=== PATIENT | male | born 1990 | race Caucasian/White ===

== ENCOUNTER 2018-02-09 11:15 | Emergency (ER) | payer MEDICAID, SELFPAY ==
--- NOTE | 2018-02-09 11:15 | DT_ITS ---
This patient was seen during an EMR downtime February 08, 2018 - February 15, 2018. This patient may have a combination of paper and electronic documentation or all paper documentation. All documentation is viewable within the e-chart portion of [employer] for each patient visit.
== END 2018-02-09 12:05 | disposition home or self-care (01) ==
PROVIDERS: Emergency Provider Emergency Medicine
DX: L02.11 Cutaneous abscess of neck (principal); F17.210 Nicotine dependence, cigarettes, uncomplicated
CPT/HCPCS: 99283

== ENCOUNTER 2018-02-23 09:53 | Emergency (ER) | payer MEDICAID, SELFPAY ==
[2018-02-23 09:56] VITALS: BP 139/97; PULSE 102; RESP 16; TEMP 37.1; O2SAT 97; BMI 25.0
--- NOTE | 2018-02-23 10:04 | ED.RN ---
PT REFUSES TO ANSWER QUESTIONS RELATED TO DRUG/ALCOHOL USE. PT REFUSES GOWN, UNCOOPERATIVE, STATES HE IS GOING TO FREAK OUT.
--- NOTE | 2018-02-23 10:18 | NURSING ---
pt refused gown, agreed to blood work and giving urine
[2018-02-23] MEDS: Haloperidol Lactate 5 MG/ML Vial IM (11:19)
[2018-02-23] MEDS: LORazepam 2 MG/ML Syringe IM (11:19)
[2018-02-23 11:47] LABS: Absolute Lymphocyte Count 2.84 X10^3/ul (0.83-4.51); Absolute Neutrophil Count 7.8 X10^3/uL (2.0-7.7); Basophil# 0.03 X10^3/uL; Basophil% 0.3 % (0-1); Eosinophil# 0.05 X10^3/uL; Eosinophils% 0.4 % (0-5); Hematocrit 44.1 % (40-54); Hemoglobin 14.5 g/dl (13.0-16.5); Lymphocyte # 2.84 X10^3/ul (4.0); Lymphocyte % 25.1 % (19-41); Mean Corp Hgb Conc 32.9 g/gl (32-36); Mean Corpuscular Hgb 29.1 pg (27.0-32.0); Mean Corpuscular Volume 88.4 fL (80-94); Mean Platelet Vol. 9.8 fl (6.2-12.0); Monocyte# 0.62 X10^3/uL; Monocyte% 5.5 % (0-10); Neutrophil # 7.76 X10^3/uL (2.7-7.7); Neutrophil % 68.6 % (47-70); Platelet Count 248 K/mm3 (150-450); RBC Distribution Width CV 13.4 % (11.6-14.6); RBC Distribution Width SD 43.5 fl (35.1-43.9); Red Blood Count 4.99 M/mm3 (4.6-6.2); White Blood Count 11.3 K/mm3 (4.4-11.0)
[2018-02-23 11:48] LABS: POSITIVE COUNT NO; POSITIVE DIFFERENTIAL NO; POSITIVE MORPHOLOGY NO
[2018-02-23 11:58] LABS: Anion Gap 4 (5-15); BUN 13 mg/dL (7-18); BUN/Creat Ratio 13.7 RATIO (10-20); Calcium,Total 9.1 mg/dL (8.5-10.1); Chloride 107 mmol/L (98-107); Creatinine, Serum 0.95 mg/dL (0.70-1.30); EST Glomerular Filtration Rate 100 mL/min (>60); Est Glom Filt Rate - Afr Amer 121 mL/min (>60); Glucose 87 mg/dL (74-106); Potassium 3.7 mmol/L (3.5-5.1); Sodium Level 140 mmol/L (136-145)
[2018-02-23 12:12] LABS: Amphetamine Urine VISTA POSITIVE (<1000 ng/mL); Barbiturate Urine VISTA NEGATIVE (< 200 ng/mL); Benzodiazepine Urine VISTA NEGATIVE (< 200 ng/mL); Cocaine Urine VISTA NEGATIVE (< 300 ng/mL); Ecstacy Urine VISTA POSITIVE (< 500 ng/mL); Methadone Urine VISTA NEGATIVE (< 300 ng/mL); PCP Urine VISTA NEGATIVE (< 25 ng/mL); THC Urine VISTA POSITIVE (< 50 ng/mL); Vista UDS pH Range 5
[2018-02-23 12:22] VITALS: BP 125/78; PULSE 78; RESP 16; O2SAT 98
--- NOTE | 2018-02-23 15:48 | NURSING ---
HEATHER, CRISIS, HERE FOR PATIENT
--- NOTE | 2018-02-23 16:03 | EKG12_ITS ---
Test Reason : MTC Blood Pressure : / mmHG Vent. Rate : 081 BPM Atrial Rate : 081 BPM P-R Int : 172 ms QRS Dur : 086 ms QT Int : 362 ms P-R-T Axes : 072 073 066 degrees QTc Int : 420 ms Normal sinus rhythm Normal ECG Confirmed by COLTEN BRANDON, GILL ([id number]), makeup editor MARY ANN ([id number] on 02/25/2018 9:05:12 AM Referred By: MEDINA Confirmed By:GILL ABEL MD
[2018-02-23 16:15] VITALS: PULSE 82; RESP 18; O2SAT 99
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
[2018-02-23 17:09] LABS: Mucous, Urine 0 SEEN /hpf (<or=2+); Red Blood Cells-Urine 0 SEEN /hpf (0-5); Squamous Epithelial Cells - UA 0 SEEN /hpf (0-5)
[2018-02-23 17:13] LABS: Color, Urine Yellow (Yellow); Glucose, Dipstick Normal (Normal); Ketone-Dipstick Negative (Negative); Leukocyte Esterase-Dipstick 25 /ul (Negative); Nitrite-Dipstick Negative (Negative); Occult Blood-Urine Negative /ul (Negative); Protein-Dipstick 15 mg/dl (Negative); Specific Gravity, Urine 1.025 (1.002-1.030); Urine Bilirubin Dipstick Negative (Negative); Urine Clarity Turbid (Clear); Urine Urobilinogen Normal (Normal)
[2018-02-23 17:20] LABS: Amorphous Sediment 3+; Bacteria 2+ /hpf (None Seen)
[2018-02-23 17:21] LABS: White Blood Cells 0-5 SEEN /hpf (0-5)
[2018-02-23 19:29] LABS: AST(SGOT) 16 U/L (15-37); Alanine Aminotransfer ALT/SGPT 20 U/L (16-61); Albumin, Serum 4.4 g/dL (3.2-5.0); Alkaline Phosphatase 66 U/L (45-117); Bilirubin, Direct 0.13 mg/dL (0.00-0.30); Globulin 3.5 g/dL (2.2-4.2); Protein, Total 7.9 g/dL (6.4-8.2)
[2018-02-23 19:31] VITALS: PULSE 104; RESP 18; O2SAT 99
[2018-02-23 22:51] VITALS: BP 126/66; PULSE 102; RESP 18; O2SAT 99
[2018-02-24] MEDS: Haloperidol Lactate 5 MG/ML Vial IM (00:10)
[2018-02-24] MEDS: LORazepam 2 MG/ML Syringe IM (00:10)
[2018-02-24 00:30] VITALS: PULSE 102; RESP 18
== END 2018-02-24 00:32 ==
PROVIDERS: Emergency Provider Emergency Medicine
DX: F29 Unspecified psychosis not due to a substance or known physiological condition (principal); F15.90 Other stimulant use, unspecified, uncomplicated; F12.90 Cannabis use, unspecified, uncomplicated; F19.90 Other psychoactive substance use, unspecified, uncomplicated; Z72.0 Tobacco use
CPT/HCPCS: 80048; 80076; 80307; 80320; 81001; 85025; 93005; 96372; 99285; G0480

== ENCOUNTER 2018-03-23 14:44 | Emergency (ER) | payer MEDICAID, SELFPAY ==
[2018-03-23 14:45] VITALS: BP 137/81; PULSE 104; RESP 16; TEMP 36.6; O2SAT 98; BMI 23.5
--- NOTE | 2018-03-23 15:29 | ED.DCSUM_ITS ---
- ER Visit Summary Date of Service: 03/23/18 Chief Complaint: Penile discharge and dysuria History of Present Illness: The patient is a 28 M history of bipolar disorder and schizophrenia. H his last sexual encounter was approximately 1 month ago. States he is having penile discharge is dysuria. Denies any hematuria. Denies any prior history of STD. Physical Examination: Well-appearing young male. Vital signs are stable afebrile. He is in no distress. H EENT exam is unremarkable. Neck nontender no lymphadenopathy. Lungs clear to auscultation bilaterally. Heart regular rate and rhythm no murmur. Abdomen soft nontender. Normal bowel sounds no peritoneal signs. Extremities moving all 4. Neurovascular intact. Neurologic exam normal. External exam nontender. No masses. No lymphadenopathy. No ulcerations. He does have a grayish penile discharge. Test Results: None Emergency Department Course and Treatment: Patient be treated with IM Rocephin and p.o. Zithromax. Treatment Plan: Instructed to avoid all sexual partners to be evaluated. Always use condoms. Disposition: Discharge Impression: Penile discharge secondary to STD Urethritis This note was generated with [employer] dictation software. It may contain incorrect words, spelling, and punctuation that were not noted in review of the chart prior to signing ED Disposition - Plan for ED Patient: Chief Complaint: Complaint Referrals: Care Physician,No Primary [Primary Care Provider] -
--- NOTE | 2018-03-23 15:29 | ED.DEP ---
ED Disposition - Plan for ED Patient: Disposition: Home or Assisted Living Chief Complaint: Complaint Instructions: ED Urethritis Infec Vs Inflam Male, ED STD Male Treated Referrals: Theodore Patel MD [STAFF PHYSICIAN] - Additional Instructions: Warn all your sexual partners to be evaluated. Follow-up if not improving in the next week.
[2018-03-23] MEDS: Azithromycin 250 MG Tablet 1000 MG PO (15:50)
[2018-03-23] MEDS: Ceftriaxone 500 MG Vial 250 MG IM (16:14)
[2018-03-23 16:30] VITALS: BP 128/85; RESP 14
== END 2018-03-23 16:31 | disposition home or self-care (01) ==
PROVIDERS: Emergency Provider Emergency Medicine
DX: R36.9 Urethral discharge, unspecified (principal); A64 Unspecified sexually transmitted disease; N34.2 Other urethritis; F31.9 Bipolar disorder, unspecified; F20.9 Schizophrenia, unspecified; Z79.899 Other long term (current) drug therapy; Z72.0 Tobacco use
CPT/HCPCS: 96372; 99283

== ENCOUNTER 2018-07-08 16:01 | Emergency (ER) | payer MEDICAID, SELFPAY ==
[2018-07-08 16:02] VITALS: BP 165/101; PULSE 95; RESP 18; TEMP 36.8; O2SAT 98; BMI 29.9
[2018-07-08 16:07] VITALS: O2SAT 100
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
[2018-07-08] MEDS: Morphine 4 MG/ML Syringe IV (17:07)
[2018-07-08] MEDS: Ondansetron 4 MG/2 ML Vial IV (17:07)
[2018-07-08] MEDS: 0.9% Normal Saline 1,000 ML 100 ML IV (17:07)
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
[2018-07-08 17:13] LABS: Absolute Lymphocyte Count 3.18 X10^3/ul (0.83-4.51); Absolute Neutrophil Count 9.1 X10^3/uL (2.0-7.7); Basophil# 0.05 X10^3/uL; Basophil% 0.4 % (0-1); Eosinophil# 0.16 X10^3/uL; Eosinophils% 1.2 % (0-5); Hematocrit 48.5 % (40-54); Hemoglobin 16.2 g/dl (13.0-16.5); Lymphocyte # 3.18 X10^3/ul (4.0); Lymphocyte % 23.5 % (19-41); Mean Corp Hgb Conc 33.4 g/gl (32-36); Mean Corpuscular Hgb 29.9 pg (27.0-32.0); Mean Corpuscular Volume 89.5 fL (80-94); Mean Platelet Vol. 10.3 fl (6.2-12.0); Monocyte# 0.98 X10^3/uL; Monocyte% 7.3 % (0-10); Neutrophil # 9.11 X10^3/uL (2.7-7.7); Neutrophil % 67.4 % (47-70); POSITIVE COUNT NO; POSITIVE DIFFERENTIAL NO; POSITIVE MORPHOLOGY NO; Platelet Count 258 K/mm3 (150-450); RBC Distribution Width SD 42.5 fl (35.1-43.9); Red Blood Count 5.42 M/mm3 (4.6-6.2); White Blood Count 13.5 K/mm3 (4.4-11.0)
[2018-07-08 17:16] VITALS: BP 130/80; O2SAT 100
[2018-07-08 17:22] LABS: International Normalized Ratio 0.9; Prothrombin Time (Protime)PT. 11.7 SECONDS (11.7-14.9)
[2018-07-08 17:23] LABS: Partial Thromboplast Time 27.8 Seconds (24.1-36.2)
[2018-07-08 17:28] LABS: Anion Gap 5 (5-15); BUN 11 mg/dL (7-18); BUN/Creat Ratio 9.5 RATIO (10-20); Calcium,Total 8.9 mg/dL (8.5-10.1); Chloride 102 mmol/L (98-107); Creatinine, Serum 1.16 mg/dL (0.70-1.30); EST Glomerular Filtration Rate 79 mL/min (>60); Est Glom Filt Rate - Afr Amer 96 mL/min (>60); Estimated Creatinine Clearance 93.96 ml/min; Glucose 74 mg/dL (74-106); Potassium 3.5 mmol/L (3.5-5.1); Sodium Level 140 mmol/L (136-145)
[2018-07-08 17:34] VITALS: BP 138/86; PULSE 110; RESP 14; O2SAT 97
== END 2018-07-08 17:53 | disposition short-term general hospital (02) ==
LOC: ED 16:52
PROVIDERS: Emergency Provider Emergency Medicine
DX: S06.321A Contusion and laceration of left cerebrum with loss of consciousness of 30 minutes or less, initial encounter (principal); R40.2410 Glasgow coma scale score 13-15, unspecified time; V43.52XA Car driver injured in collision with other type car in traffic accident, initial encounter; Y93.9 Activity, unspecified; Y92.9 Unspecified place or not applicable
CPT/HCPCS: 70450; 71045; 72125; 72170; 80048; 85025; 85610; 85730; 96361; 96374; 96375; 99284; J7030; A4216; J2405

== ENCOUNTER 2018-09-30 08:34 | Emergency (ER) | payer MEDICAID, SELFPAY ==
[2018-09-30] VITALS (8 sets, daily range): BP systolic 124–142; BP diastolic 72–93; PULSE 76–93; RESP 14–21; TEMP 36.9; O2SAT 95–100; BMI 23.3
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
--- NOTE | 2018-09-30 08:40 | ED.RN ---
[facility] TO HAVE [facility]ONE SEE THE PATIENT. THEY WILL BE SENDING SOMEONE OVER
[2018-09-30] MEDS: LORazepam 2 MG/ML Syringe IM (09:06)
--- NOTE | 2018-09-30 09:28 | ED.RN ---
HEATHER CALLED FROM [facility] AND SAID THEY WOULD BE SENDING SOMEONE OVER WITHIN THE HOUR
[2018-09-30 09:44] LABS: Absolute Lymphocyte Count 2.34 X10^3/ul (0.83-4.51); Absolute Neutrophil Count 5.7 X10^3/uL (2.0-7.7); Basophil# 0.07 X10^3/uL; Basophil% 0.8 % (0-1); Eosinophil# 0.13 X10^3/uL; Eosinophils% 1.5 % (0-5); Hemoglobin 14.5 g/dl (13.0-16.5); Lymphocyte # 2.34 X10^3/ul (4.0); Lymphocyte % 26.1 % (19-41); Mean Corpuscular Volume 91.1 fL (80-94); Monocyte# 0.69 X10^3/uL; Monocyte% 7.7 % (0-10); Neutrophil # 5.71 X10^3/uL (2.7-7.7); Neutrophil % 63.8 % (47-70); Platelet Count 250 K/mm3 (150-450); RBC Distribution Width CV 13.3 % (11.6-14.6); Red Blood Count 4.83 M/mm3 (4.6-6.2)
[2018-09-30 09:45] LABS: POSITIVE COUNT NO; POSITIVE DIFFERENTIAL NO; POSITIVE MORPHOLOGY NO
[2018-09-30 09:52] LABS: Anion Gap 7 (5-15); BUN 14 mg/dL (7-18); BUN/Creat Ratio 14.5 RATIO (10-20); Calcium,Total 8.7 mg/dL (8.5-10.1); Chloride 107 mmol/L (98-107); Creatinine, Serum 0.97 mg/dL (0.70-1.30); EST Glomerular Filtration Rate 97 mL/min (>60); Est Glom Filt Rate - Afr Amer 118 mL/min (>60); Estimated Creatinine Clearance 112.37 ml/min; Glucose 87 mg/dL (74-106); Potassium 4.3 mmol/L (3.5-5.1); Sodium Level 141 mmol/L (136-145)
[2018-09-30 10:09] LABS: Alcohol, Blood (Medical)-Serum < 3.0 mg/dL
[2018-09-30] MEDS: Ziprasidone IM 20 MG/ML VIAL IM (10:45)
[2018-09-30 11:53] LABS: Amphetamine Urine VISTA POSITIVE (<1000 ng/mL); Barbiturate Urine VISTA NEGATIVE (< 200 ng/mL); Benzodiazepine Urine VISTA NEGATIVE (< 200 ng/mL); Cocaine Urine VISTA NEGATIVE (< 300 ng/mL); Ecstacy Urine VISTA POSITIVE (< 500 ng/mL); Methadone Urine VISTA NEGATIVE (< 300 ng/mL); PCP Urine VISTA NEGATIVE (< 25 ng/mL); THC Urine VISTA POSITIVE (< 50 ng/mL); Vista UDS pH Range 6
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
== END 2018-09-30 17:58 ==
PROVIDERS: Emergency Provider Emergency Medicine
DX: F20.9 Schizophrenia, unspecified (principal); F31.9 Bipolar disorder, unspecified; R45.6 Violent behavior; Z78.1 Physical restraint status
CPT/HCPCS: 80048; 80307; 80320; 85025; 96372; 99285; G0480; J3486

== ENCOUNTER 2019-02-25 18:38 | Emergency (ER) | payer MEDICAID, SELFPAY ==
[2018-09-30 08:35] VITALS: BMI 23.3
[2019-02-25 18:38] VITALS: BP 119/68; PULSE 95; RESP 16; TEMP 36.4; O2SAT 100; BMI 24.7
[2019-02-25 19:16] VITALS: TEMP 36.4
[2019-02-25] MEDS: Clindamycin HCl 150 MG Capsule 300 MG PO (20:02)
--- NOTE | 2019-02-25 20:30 | ED.VISSUMM ---
- ER Visit Summary Date of Service: 02/25/19 Chief Complaint: Left jaw abscess History of Present Illness: The patient is a 29 M who presents for left sided jaw abscess that is been there for 3 months. Patient states it is also painful. He states today it started draining after he picked at it. He came in today because of the new drainage. He denies fever, sore throat, chest pain, shortness of breath, nausea or vomiting, or other complaints. He denies any history of IV drug use. Denies any prior abscesses. He is not diabetic. No other medical issues. Physical Examination: Patient is afebrile and hemodynamically stable. Well-nourished well-developed sitting in bed in no distress. Patient has swelling along the left mandible with a central scab and fluctuance. No submandibular fullness, no oropharyngeal erythema, exudates, neck is supple and full range of motion, no lymphadenopathy, no meningismus. No swelling noted of the salivary glands.] Test Results: [] Emergency Department Course and Treatment: Incision and drainage was performed. The area was cleansed thoroughly with chlorhexidine. 1 cc of lidocaine without epinephrine was locally instilled to anesthetize the top of the abscess region. Good anesthesia was achieved. A 1 cm stab incision was performed with initial expression of pus. Curved hemostats were used to break up any loculations. A moderate amount of very thick pus was expressed. The abscess cavity was irrigated. A wick was placed to keep the incision from closing. Patient was started on clindamycin antibiotic. He tolerated the procedure well. He was discharged home with return precautions. Treatment Plan: [] Disposition: [] Impression: Right jaw abscess status post incision and drainage This note was generated with [employer] dictation software. It may contain incorrect words, spelling, and punctuation that were not noted in review of the chart prior to signing ED Disposition - Plan for ED Patient: Disposition: Home or Assisted Living Instructions: ABSCESS, Incision and Drainage Prescriptions: Clindamycin [Cleocin] 300 mg PO 4X/DAY #80 cap Prescription Printed Referrals: Care Physician,No Primary [Primary Care Provider] - Doctor,Your [STAFF PHYSICIAN] - 3-5 Days if not improving Additional Instructions: Take the antibiotic as prescribed for the full 10 days even if you feel better before the anabiotic is complete. Do not skip any doses. If you have any worsening of your condition or any new concerning symptoms, please return immediately to the emergency department for another evaluation.
[2019-02-25 20:43] VITALS: BP 120/72; PULSE 74; RESP 16; O2SAT 99
== END 2019-02-25 20:41 | disposition home or self-care (01) ==
PROVIDERS: Emergency Provider Emergency Medicine
DX: M27.2 Inflammatory conditions of jaws (principal); Z72.0 Tobacco use
CPT/HCPCS: 10061; 99283

== ENCOUNTER 2019-04-09 20:54 | Emergency (ER) | payer SELFPAY ==
[2019-04-09 20:57] VITALS: BP 119/84; PULSE 86; PULSE 91; RESP 17; RESP 18; TEMP 37; O2SAT 97; BMI 22.3
--- NOTE | 2019-04-09 22:36 | ED.DCSUM_ITS ---
- ER Visit Summary Date of Service: 04/09/19 Chief Complaint: Meth abuse History of Present Illness: The patient is a 29 M who presents with meth abuse. The family had not seen him since last week. They are concerned that he may need IV fluids. However the patient states that he has been eating. He is able to tell me that he ate some dollar store food and some pancakes. Family also states he has been anxious. Patient has a blunted affect and did not provide much more history. However he does deny any recent illness such as fevers pain nausea vomiting. Physical Examination: Afebrile vitals are stable Moist mucous membranes Heart regular rate and rhythm Lungs clear Abdomen soft Alert Poverty of speech, blunted affect Test Results: Not indicated Emergency Department Course and Treatment: Basically family brought him here just requesting IV fluids. The patient also requested IV fluids. He was given a liter saline. He was given Vistaril. He was discharged. Treatment Plan: [] Disposition: Discharge Impression: Methamphetamine abuse This note was generated with [employer] dictation software. It may contain incorrect words, spelling, and punctuation that were not noted in review of the chart prior to signing ED Disposition - Plan for ED Patient: Referrals: Care Physician,No Primary [Primary Care Provider] -
--- NOTE | 2019-04-09 22:38 | ED.DEP ---
ED Disposition - Plan for ED Patient: Instructions: Understanding Methamphetamine Abuse and Addiction Referrals: Care Physician,No Primary [Primary Care Provider] -
[2019-04-09] MEDS: hydrOXYzine PAM 25 MG Capsule PO (22:42)
--- NOTE | 2019-04-09 23:17 | ED.RN ---
family member wants pt treated for mental illness, pt denies suicidal ideation, self harm, or desire for mental health treatment. made aware. no further orders, pt d/c.
== END 2019-04-09 23:33 | disposition home or self-care (01) ==
PROVIDERS: Emergency Provider Emergency Medicine
DX: F15.10 Other stimulant abuse, uncomplicated (principal)
CPT/HCPCS: 99283; J7030; A4216

== ENCOUNTER 2019-04-12 15:27 | Emergency (ER) | payer SELFPAY ==
[2019-04-12] VITALS (10 sets, daily range): BP systolic 101–126; BP diastolic 52–67; PULSE 58–118; RESP 14–20; TEMP 37.8; O2SAT 93–98; BMI 20.4
--- NOTE | 2019-04-12 15:42 | ED.VISSUMM ---
- ER Visit Summary Date of Service: 04/12/19 Chief Complaint: Agitation and psychosis History of Present Illness: The patient is a 29 M who presents with agitation and psychosis that was noticed today. Patient states that I need to kill my [place] thoughts. Patient does not answer any other questions. Patient is having some yazidi delusions. Physical Examination: Oral mucosa is pink and moist. Neck is supple. Trachea is midline. There is no JVD. Heart was regular rate and rhythm. Lungs are clear and equal bilaterally. Abdomen is soft. Bowel sounds are normal. There is no tenderness. Cranial nerves II through XII are intact. Strength is 5/5 blood in the upper and lower extremities. There are no apparent sensory deficits noted. Test Results: CBC showed a mild leukocytosis of 11.9. Basic metabolic profile was essentially within normal limits. Urine tox screen was positive for amphetamines and cannabinoids. Serum alcohol level was normal. Emergency Department Course and Treatment: Patient was given injections of Geodon and Ativan here. Patient was resting comfortably after this. Patient was able to be removed from restraints. Crisis was in to evaluate the patient. She felt that the patient will need to be transferred to psychiatric facility. She was told that the patient has been noncompliant with his medications recently. Disposition: Transfer to psychiatric facility Impression: Psychosis This note was generated with Pole Star dictation software. It may contain incorrect words, spelling, and punctuation that were not noted in review of the chart prior to signing ED Disposition - Plan for ED Patient: Disposition: Psychiatric Hospital or Unit Diagnosis: Psychosis Referrals: Care Physician,No Primary [Primary Care Provider] -
[2019-04-12] MEDS: Ziprasidone IM 20 MG/ML VIAL IM (15:51)
[2019-04-12] MEDS: LORazepam 2 MG/ML Syringe IM (15:51)
[2019-04-12 16:55] LABS: Absolute Neutrophil Count 9.5 X10^3/uL (2.0-7.7); Basophil# 0.05 X10^3/uL; Basophil% 0.4 % (0-1); Eosinophil# 0.04 X10^3/uL; Eosinophils% 0.3 % (0-5); Hematocrit 40.2 % (40-54); Hemoglobin 13.2 g/dL (13.0-16.5); Lymphocyte % 12.6 % (19-41); Mean Corp Hgb Conc 32.8 g/dL (32-36); Mean Corpuscular Volume 88.4 fL (80-94); Mean Platelet Vol. 10.7 fl (6.2-12.0); Monocyte# 0.72 X10^3/uL; NRBC Flagged by Analyzer 0 % (0-5); Neutrophil # 9.54 X10^3/uL (2.7-7.7); Neutrophil % 80.2 % (47-70); Platelet Count 226 K/mm3 (150-450); RBC Distribution Width SD 39.1 fl (35.1-43.9); Red Blood Count 4.55 M/mm3 (4.6-6.2); White Blood Count 11.9 K/mm3 (4.4-11.0)
--- NOTE | 2019-04-12 17:01 | ED.RN ---
PT ARRIVES TO ED VIA SQUAD WITH POLICED DEPT. AT BEDSIDE. PT IN HANDCUFFS FROM PD ON ARRIVAL. PT THRASHING AROUND ON CART, ATTEMPTING TO KICK POLICE AND STAFF. PT YELLING, I DON'T WANT TO BE HERE THEY ARE GOING TO KILL ME, HELP ME, GET THESE GUYS OUT OF HERE. THIS RN ATTEMPTS TO DE ESCALATE PT VERBALLY BY PROVIDING EMOTIONAL SUPPORT. PT ASSURED THAT STAFF IS HERE TO HELP PT NOT TO HARM PT. PT ADMITS TO HEARING VOICES. DR. DUNHAM AT BEDSIDE ON PT ARRIVAL, PT PLACED IN RESTRAINTS DUE TO BEING A HARM TO STAFF AND SELF. PT REPORTS SUICIDAL THOUGHTS IN SQUAD BUT DENIES A PLAN OR THOUGHTS OF HI. PT CONTINUING TO SHOUT AND CUSS AT STAFF AFTER RESTRAINTS APPLIED, STATING GET THAT LINDSEY OUT OF HERE HE IS GOING TO KILL ME. NO ONE PRESENT BUT THIS RN IN THE ROOM AT THE TIME.
[2019-04-12 17:06] LABS: Anion Gap 6 (5-15); BUN 16 mg/dL (7-18); BUN/Creat Ratio 15.2 RATIO (10-20); Calcium,Total 8.9 mg/dL (8.5-10.1); Chloride 110 mmol/L (98-107); Creatinine, Serum 1.05 mg/dL (0.70-1.30); EST Glomerular Filtration Rate 88 mL/min (>60); Est Glom Filt Rate - Afr Amer 107 mL/min (>60); Estimated Creatinine Clearance 99.23 ml/min; Glucose 89 mg/dL (74-106); Potassium 3.3 mmol/L (3.5-5.1); Sodium Level 142 mmol/L (136-145)
--- NOTE | 2019-04-12 18:25 | NURSING ---
EMELY, CRISIS, HERE
[2019-04-12 18:38] LABS: Amphetamine Urine VISTA POSITIVE (<1000 ng/mL); Barbiturate Urine VISTA NEGATIVE (< 200 ng/mL); Benzodiazepine Urine VISTA NEGATIVE (< 200 ng/mL); Cocaine Urine VISTA NEGATIVE (< 300 ng/mL); Ecstacy Urine VISTA NEGATIVE (< 500 ng/mL); Methadone Urine VISTA NEGATIVE (< 300 ng/mL); PCP Urine VISTA NEGATIVE (< 25 ng/mL); THC Urine VISTA POSITIVE (< 50 ng/mL); Vista UDS pH Range 6
--- NOTE | 2019-04-12 18:39 | ED.RN ---
pt sleeping, d/c from restraints at 1800. sitter at bedside. respires even and unlabored. will continue to monitor.
--- NOTE | 2019-04-12 22:40 | ED.RN ---
PT SISTER CALLED TO CHECK ON PT. PT SLEEPING. TOLD TO CALL BACK AT A LATER TIME.
[2019-04-13] VITALS (16 sets, daily range): BP systolic 101–138; BP diastolic 63–83; PULSE 16–88; RESP 15–18; TEMP 36.8–37.1; O2SAT 94–100
--- NOTE | 2019-04-13 01:04 | NURSING ---
EMELY FROM CRISIS CALLED STATING PATIENT WAS DENIED AT [facility] AND IS NOW REFERED TO [facility]
--- NOTE | 2019-04-13 02:35 | EKG12_ITS ---
Test Reason : Blood Pressure : / mmHG Vent. Rate : 065 BPM Atrial Rate : 065 BPM P-R Int : 176 ms QRS Dur : 082 ms QT Int : 442 ms P-R-T Axes : 068 070 074 degrees QTc Int : 459 ms Normal sinus rhythm with sinus arrhythmia Normal ECG Confirmed by FERNY KRUGER ([id number]), news video editor LAURA ONEAL ([id number]) on 04/18/2019 1:27:39 PM Referred By: Confirmed By:FERNY KRUGER
--- NOTE | 2019-04-13 02:48 | ED.RN ---
RECEIVED CALL FROM [facility] REQUESTING LIVER PROFILE, CPK, COMPLETE UA, AND EKG. RESULTS TO BE FAXED TO [facility] WHEN RESULTED.
[2019-04-13 03:21] LABS: AST(SGOT) 33 U/L (15-37); Alanine Aminotransfer ALT/SGPT 32 U/L (16-61); Albumin, Serum 3.7 g/dL (3.2-5.0); Alkaline Phosphatase 59 U/L (45-117); Bilirubin, Direct 0.21 mg/dL (0.00-0.30); Globulin 3.1 g/dL (2.2-4.2); Protein, Total 6.8 g/dL (6.4-8.2)
[2019-04-13 03:27] LABS: CPK Total, Creatine Kinase 540 U/L (39-308)
[2019-04-13 03:36] LABS: Color, Urine Yellow (Yellow); Glucose, Dipstick Normal (Normal); Ketone-Dipstick 5 mg/dl (Negative); Leukocyte Esterase-Dipstick Negative /ul (Negative); Nitrite-Dipstick Negative (Negative); Occult Blood-Urine 250 /ul (Negative); Protein-Dipstick 30 mg/dl (Negative); Specific Gravity, Urine 1.025 (1.002-1.030); Urine Bilirubin Dipstick Negative (Negative); Urine Clarity Sl. Cloudy (Clear); Urine Urobilinogen Normal (Normal)
[2019-04-13 03:42] LABS: Hyaline Cast 0-5 SEEN /lpf (0-5); Mucous, Urine 1+ /hpf (<or=2+); Red Blood Cells-Urine 25-50 SEEN /hpf (0-5)
[2019-04-13 03:43] LABS: Bacteria 1+ /hpf (None Seen); Coarse Granular Cast 0-5 SEEN /lpf (0-5 /lpf); Squamous Epithelial Cells - UA 0-5 SEEN /hpf (0-5); White Blood Cells 0-5 SEEN /hpf (0-5)
[2019-04-13] MEDS: 0.9% Normal Saline 1,000 ML 999 ML IV (05:24)
[2019-04-13 07:02] LABS: CPK Total, Creatine Kinase 280 U/L (39-308)
[2019-04-13] MEDS: Ziprasidone IM 20 MG/ML VIAL IM ×2 (08:03→21:23)
--- NOTE | 2019-04-13 08:04 | ED.RN ---
PT IS ESCALATING IN BEHAVIOR AND IRRITATION. PT TOOK HIS GOWN OFF AND REFUSED ASSISTANCE GETTING IT BACK ON. PT THEN REMOVED HIS IV, CATHETER INTACT. WHEN ATTEMPTNG TO PLACE A DRESSING HE WAS REFUSING AND TRYING TO GET DRESSED IN THE ROOM. UNABLE TO REDIRECT THE PT. PT WAS THEN ASSISTED INTO THE BED AND EXPLAINED WE WERE GOING TO GIVE HIM MEDICATION TO HELP RELAX. PT REFUSED AND BECAME COMBATIVE. PT WAS THEN MEDICATED AND GIVEN BLANKETS EXPLAINING THE NEED FOR HIM TO STAY IN THE BED AND TRY TO REMAIN CALM. PT IS CURRENTLY REMAINING IN THE BED. SITTER REMAINS AT BEDSIDE.
--- NOTE | 2019-04-13 15:54 | ED.RN ---
PT'S SISTER BROUGHT IN TSHIRT, JEANS AND UNDERWEAR BUT PT STATES THEY ARE NOT THE CORRECT SIZE SO SHE IS TAKING THEM BACK HOME TO BRING ANOTHER SET OF THE APPROPRIATE SIZE.
--- NOTE | 2019-04-13 20:59 | ED.RN ---
[facility] TRANSPORTING PT ETA [id number]
--- NOTE | 2019-04-13 21:30 | ED.RN ---
PT IV D/C. ANGIO INTACT.
== END 2019-04-13 21:42 ==
PROVIDERS: Emergency Medicine; Emergency Provider Emergency Medicine
DX: F29 Unspecified psychosis not due to a substance or known physiological condition (principal); Z78.1 Physical restraint status; Z91.14 Patient's other noncompliance with medication regimen
CPT/HCPCS: 36415; 80048; 80076; 80307; 80320; 81001; 82550; 85025; 93005; 96360; 96361; 96372; 99285; J7030; A4216; G0480; J3486

== ENCOUNTER 2019-11-10 05:18 | Emergency (ER) | payer MEDICAID, SELFPAY ==
[2019-04-12 15:29] VITALS: BMI 20.4
[2019-11-10] VITALS (13 sets, daily range): BP systolic 109–147; BP diastolic 66–102; PULSE 66–102; RESP 14–18; TEMP 36.8; O2SAT 98–100; BMI 21.7
--- NOTE | 2019-11-10 05:27 | ED.VIS.GEN ---
History of Present Illness Chief Complaint: Mental Health Informant: - - Police Narrative: Patient brought in by police for mental health evaluation. He apparently called for help, but then remained nonverbal with the police for approximately 45 minutes. They were able to get only a small amount of information out of him. Past Medical History - Allergies and Home Meds Allergies/Adverse Reactions: Allergies No Known Allergies Allergy (Verified 11/10/19 05:45) Primary Care Physician: Care Physician,No Primary [Primary Care Provider] - Past Medical History: - - Previously evaluated for psychosis Surgical History: ,  Smoking Status: Current every day smoker Review of Systems ROS: Unable to Obtain - Patient refusing to speak Physical Exam Vital Signs/Narrative: Vital Signs Temp Pulse Resp BP Pulse Ox 11/10/19 05:19 98.2 F 102 H 18 147/102 H 98 General: Well nourished, Well developed Head: Normocephalic ENT: Moist mucous membranes Neck: Supple Cardiovascular: Regular rate, Regular rhythm Respiratory: No distress, CTA bilaterally Abdomen: Soft, Nontender Neurological: Alert, - - Patient is observed ambulating into the emergency room without difficulty. He is moving all 4 extremities. He Steri-Stat ahead and refuses to answer any questions. Diagnostic/Tx/Re-eval Laboratory Results 11/10/19 11/10/19 11/10/19 05:35 05:50 05:50 WBC 11.4 H RBC 4.72 Hgb 13.8 Hct 41.0 MCV 86.9 MCH 29.2 MCHC 33.7 RDW Std Deviation 39.3 RDW Coeff of Vu 12.4 Plt Count 258 MPV 10.1 Immature Gran % (Auto) 0.300 Neut % (Auto) 66.5 Lymph % (Auto) 21.5 [place] % (Auto) 10.5 H Eos % (Auto) 0.7 Baso % (Auto) 0.5 Absolute Neuts (auto) 7.6 Absolute Lymphs (auto) 2.45 Nucleated RBC % 0 Sodium 137 Potassium 4.0 Chloride 105 Carbon Dioxide 23.0 Anion Gap 9 BUN 22 H Creatinine 1.18 Estim Creat Clear Calc 79.28 Est GFR (MDRD) Af Amer 93 Est GFR (MDRD) Non-Af 77 BUN/Creatinine Ratio 18.6 Glucose 95 Calcium 9.3 Urine Opiates Screen Urine Methadone Screen Ur Barbiturates Screen Ur Phencyclidine Scrn Ur Amphetamines Screen U Methamphetamin-MDMA U Benzodiazepines Scrn Urine Cocaine Screen U Cannabinoids Screen Ur Drug Screen Comment Ethyl Alcohol < 3.0 11/10/19 06:05 WBC RBC Hgb Hct MCV MCH MCHC RDW Std Deviation RDW Coeff of Vu Plt Count MPV Immature Gran % (Auto) Neut % (Auto) Lymph % (Auto) [place] % (Auto) Eos % (Auto) Baso % (Auto) Absolute Neuts (auto) Absolute Lymphs (auto) Nucleated RBC % Sodium Potassium Chloride Carbon Dioxide Anion Gap BUN Creatinine Estim Creat Clear Calc Est GFR (MDRD) Af Amer Est GFR (MDRD) Non-Af BUN/Creatinine Ratio Glucose Calcium Urine Opiates Screen NEGATIVE Urine Methadone Screen NEGATIVE Ur Barbiturates Screen NEGATIVE Ur Phencyclidine Scrn NEGATIVE Ur Amphetamines Screen POSITIVE H U Methamphetamin-MDMA NEGATIVE U Benzodiazepines Scrn NEGATIVE Urine Cocaine Screen NEGATIVE U Cannabinoids Screen NEGATIVE Ur Drug Screen Comment Ethyl Alcohol - Medical Decision Making Patient was seen by Ilan from crisis. Patient will require placement. He is more talkative. At this time. I was advised by nursing staff a short time later the patient is becoming more agitated and actually requested something for sedation. He is given a dose of Geodon. My understanding is information has been sent to [facility] for transfer. ED Disposition - Plan for ED Patient: Disposition: Psychiatric Hospital or Unit Diagnosis: Psychosis Referrals: Care Physician,No Primary [Primary Care Provider] -
[2019-11-10 06:09] LABS: Absolute Lymphocyte Count 2.45 X10^3/uL (0.83-4.51); Absolute Neutrophil Count 7.6 X10^3/uL (2.0-7.7); Basophil# 0.06 X10^3/uL; Basophil% 0.5 % (0-1); Eosinophil# 0.08 X10^3/uL; Eosinophils% 0.7 % (0-5); Hemoglobin 13.8 g/dL (13.0-16.5); Lymphocyte # 2.45 X10^3/ul (4.0); Lymphocyte % 21.5 % (19-41); Mean Corp Hgb Conc 33.7 g/dL (32-36); Mean Corpuscular Hgb 29.2 pg (27.0-32.0); Mean Corpuscular Volume 86.9 fL (80-94); Mean Platelet Vol. 10.1 fl (6.2-12.0); Monocyte% 10.5 % (0-10); NRBC Flagged by Analyzer 0 % (0-5); Neutrophil % 66.5 % (47-70); Platelet Count 258 K/mm3 (150-450); RBC Distribution Width CV 12.4 % (11.6-14.6); RBC Distribution Width SD 39.3 fl (35.1-43.9); Red Blood Count 4.72 M/mm3 (4.6-6.2); White Blood Count 11.4 K/mm3 (4.4-11.0)
[2019-11-10 06:11] LABS: Anion Gap 9 (5-15); BUN 22 mg/dL (7-18); BUN/Creat Ratio 18.6 RATIO (10-20); Calcium,Total 9.3 mg/dL (8.5-10.1); Chloride 105 mmol/L (98-107); Creatinine, Serum 1.18 mg/dL (0.70-1.30); EST Glomerular Filtration Rate 77 mL/min (>60); Est Glom Filt Rate - Afr Amer 93 mL/min (>60); Estimated Creatinine Clearance 79.28 ml/min; Glucose 95 mg/dL (74-106); Sodium Level 137 mmol/L (136-145)
[2019-11-10 06:26] LABS: Alcohol, Blood (Medical)-Serum < 3.0 mg/dL
--- NOTE | 2019-11-10 06:38 | NURSING ---
CALLED CRISIS ANSWERING MACHINE. LEFT MESSAGE TAI RODRIGUEZ, CALLED BACK
[2019-11-10 06:41] LABS: Amphetamine Urine VISTA POSITIVE (<1000 ng/mL); Barbiturate Urine VISTA NEGATIVE (< 200 ng/mL); Benzodiazepine Urine VISTA NEGATIVE (< 200 ng/mL); Cocaine Urine VISTA NEGATIVE (< 300 ng/mL); Ecstacy Urine VISTA NEGATIVE (< 500 ng/mL); Methadone Urine VISTA NEGATIVE (< 300 ng/mL); PCP Urine VISTA NEGATIVE (< 25 ng/mL); THC Urine VISTA NEGATIVE (< 50 ng/mL); Vista UDS pH Range 6
--- NOTE | 2019-11-10 06:57 | NURSING ---
MICHAEL, CRISIS, HERE
[2019-11-10] MEDS: Ziprasidone IM 20 MG/ML VIAL IM (08:22)
--- NOTE | 2019-11-10 09:20 | EKG12_ITS ---
Test Reason : MENTAL CLEARANCE Blood Pressure : / mmHG Vent. Rate : 075 BPM Atrial Rate : 075 BPM P-R Int : 160 ms QRS Dur : 086 ms QT Int : 382 ms P-R-T Axes : 068 067 056 degrees QTc Int : 426 ms Normal sinus rhythm Normal ECG Confirmed by COLIN BRANDON, SEBASTIEN ([id number]), editor managing newspaper LAURA ONEAL ([id number]) on 11/11/2019 8:02:28 AM Referred By: MISTY Confirmed By:PAUL SHAW MD
[2019-11-10 09:54] LABS: AST(SGOT) 47 U/L (15-37); Alanine Aminotransfer ALT/SGPT 25 U/L (16-61); Albumin, Serum 4.1 g/dL (3.2-5.0); Alkaline Phosphatase 82 U/L (45-117); Bilirubin, Direct 0.12 mg/dL (0.00-0.30); Globulin 4.3 g/dL (2.2-4.2); Protein, Total 8.4 g/dL (6.4-8.2)
--- NOTE | 2019-11-10 10:04 | NURSING ---
FAXED EKG, LIVER PANEL, AND CURRENT VITALS TO [facility]
--- NOTE | 2019-11-10 11:52 | NURSING ---
CALLED CRISIS AND HAD TO LEAVE A MESSAGE. SOMEONE WILL CALL US BACK. JUST WANTING AN [facility]
--- NOTE | 2019-11-10 12:17 | NURSING ---
PATIENT ACCEPTED AT [facility] IS ARRANGING TRANSPORT AND WILL CALL WITH INFO. PER KENYATTA
--- NOTE | 2019-11-10 12:58 | NURSING ---
REPOT GIVEN TO SAGRARIO AT [facility]
== END 2019-11-10 16:00 ==
PROVIDERS: Emergency Provider Emergency Medicine
DX: F29 Unspecified psychosis not due to a substance or known physiological condition (principal)
CPT/HCPCS: 80048; 80076; 80307; 80320; 85025; 93005; 96372; 99285; G0480; J3486

== ENCOUNTER 2020-01-07 23:35 | Emergency (ER) | payer SELFPAY ==
[2019-11-10 05:19] VITALS: BMI 21.7
[2020-01-07 23:35] VITALS: BP 140/97; PULSE 113; RESP 14; TEMP 36.1; O2SAT 100; BMI 25.0
[2020-01-08] VITALS (11 sets, daily range): BP systolic 107–109; BP diastolic 62–67; PULSE 68–93; RESP 14–18; TEMP 36.5; O2SAT 96–98
[2020-01-08] MEDS: Ziprasidone IM 20 MG/ML VIAL IM (00:20)
[2020-01-08 00:53] LABS: Absolute Lymphocyte Count 3.17 X10^3/uL (0.83-4.51); Absolute Neutrophil Count 7.5 X10^3/uL (2.0-7.7); Basophil# 0.06 X10^3/uL; Basophil% 0.5 % (0-1); Eosinophil# 0.08 X10^3/uL; Eosinophils% 0.7 % (0-5); Hematocrit 44.1 % (40-54); Lymphocyte # 3.17 X10^3/ul (4.0); Lymphocyte % 26.9 % (19-41); Mean Corp Hgb Conc 31.7 g/dL (32-36); Mean Corpuscular Hgb 28.5 pg (27.0-32.0); Mean Corpuscular Volume 89.8 fL (80-94); Monocyte# 0.91 X10^3/uL; Monocyte% 7.7 % (0-10); NRBC Flagged by Analyzer 0 % (0-5); Neutrophil # 7.47 X10^3/uL (2.7-7.7); Neutrophil % 63.4 % (47-70); Platelet Count 294 K/mm3 (150-450); RBC Distribution Width CV 12.8 % (11.6-14.6); RBC Distribution Width SD 42.2 fl (35.1-43.9); Red Blood Count 4.91 M/mm3 (4.6-6.2); White Blood Count 11.8 K/mm3 (4.4-11.0)
[2020-01-08 01:04] LABS: Anion Gap 4 (5-15); BUN 20 mg/dL (7-18); BUN/Creat Ratio 21.1 RATIO (10-20); Calcium,Total 9.3 mg/dL (8.5-10.1); Chloride 109 mmol/L (98-107); Creatinine, Serum 0.95 mg/dL (0.70-1.30); EST Glomerular Filtration Rate 99 mL/min (>60); Est Glom Filt Rate - Afr Amer 119 mL/min (>60); Glucose 94 mg/dL (74-106); Potassium 3.6 mmol/L (3.5-5.1); Sodium Level 141 mmol/L (136-145)
[2020-01-08 01:06] LABS: Amphetamine Urine VISTA POSITIVE (<1000 ng/mL); Barbiturate Urine VISTA NEGATIVE (< 200 ng/mL); Benzodiazepine Urine VISTA NEGATIVE (< 200 ng/mL); Cocaine Urine VISTA NEGATIVE (< 300 ng/mL); Ecstacy Urine VISTA POSITIVE (< 500 ng/mL); Methadone Urine VISTA NEGATIVE (< 300 ng/mL); PCP Urine VISTA NEGATIVE (< 25 ng/mL); THC Urine VISTA NEGATIVE (< 50 ng/mL); Vista UDS pH Range 5
[2020-01-08 01:47] LABS: Alcohol, Blood (Medical)-Serum < 3.0 mg/dL
--- NOTE | 2020-01-08 03:34 | NURSING ---
CALLED CRISIS AT [phone]
--- NOTE | 2020-01-08 03:43 | ED.DCSUM_ITS ---
- ER Visit Summary Date of Service: 01/08/20 Chief Complaint: Abnormal behavior History of Present Illness: The patient is a 29 M who presents with abnormal behavior that was noticed today. Patient refuses to answer any questions. Patient was brought in by police. Police reports the patient has been acting abnormally. Police report that he threw all of his medications away. Fully states that he is not caring for himself properly. Patient states he does not want to go to [place]. Patient denies any fevers or chills. Patient denies any nausea or vomiting. Patient denies any chest pain or shortness of breath. Patient denies any other symptoms. Physical Examination: Vital signs are stable. Patient is afebrile. Patient is in no acute distress. Oral mucosa is pink and moist. Neck is supple. Trachea is midline. There is no JVD noted. Heart was regular rate and rhythm. Lungs are clear and equal bilaterally. Abdomen is soft. Bowel sounds are normal. There is no tenderness. There is no rebound or guarding noted. Skin is warm dry. Cranial nerves II through XII are intact. There are no focal motor or sensory deficits noted. Extremities are intact. There is no calf tenderness or edema. Patient has poverty of speech. Patient denies any suicidal homicidal ideations. Patient refused to answer whether he was having visual or auditory hallucinations. Test Results: CBC shows a slight leukocytosis of 11.8. Metabolic profile was within normal limits. Urine tox screen was positive for amphetamines and MDMA. Serum alcohol level was normal. Emergency Department Course and Treatment: Patient was given a dose of Geodon here for agitation. Patient was monitored here in the emergency department. Case was discussed with crisis counselor. They will consult with the patient over the phone and he is more awake and alert. Disposition: Care of the patient was turned over to the oncoming physician. Impression: Abnormal behavior This note was generated with Sunpreme dictation software. It may contain incorrect words, spelling, and punctuation that were not noted in review of the chart prior to signing ED Disposition - Plan for ED Patient: Referrals: Care Physician,No Primary [Primary Care Provider] -
--- NOTE | 2020-01-08 07:24 | ED.RN ---
AWAITING PATIENT TO BE EVALUATED BY CRISIS. PT SLEEPING AT THIS TIME. BREAKFAST TRAY ORDERED.
--- NOTE | 2020-01-08 08:22 | NURSING ---
CALLED CRISIS. EMELY IS ON.
--- NOTE | 2020-01-08 08:27 | NURSING ---
TAI HAN, CALLED BACK. SHE WILL LET HEATHER KNOW ABOUT PATIENT.
--- NOTE | 2020-01-08 08:51 | NURSING ---
HEATHER, CRISIS, CALLED BACK SHE HAS TO TAKE CARE OF SOMETHING, THEN SHE WILL WORK ON PATIENT
--- NOTE | 2020-01-08 14:33 | ED.DEP ---
ED Disposition - Plan for ED Patient: Diagnosis: Psychiatric disorder Instructions: ED Schizophrenia General, ED Schizo Affective Disorder, ED Personality Disorder, ED AMPHETAMINE ABUSE Referrals: Care Physician,No Primary [Primary Care Provider] - Additional Instructions: Take your medications follow-up with your mental health counselor transition social worker tomorrow
--- NOTE | 2020-01-08 15:35 | ED.RN ---
REVIEWED D/C INSTRUCTIONS, FOLLOW UP CARE, AND S/S THAT WOULD WARRANT A RETURN TO THE ED WITH PT. PT DID NOT WANT DISCHARGE PAPERS SO PUT THEM IN THE TRASH. PT AMBULATED OUT OF ED AND STATES HE WILL FOLLOW UP WITH COUNSELING CENTER. GAIT STEADY, RESP EVEN AND UNLABORED, NO DISTRESS NOTED.
== END 2020-01-08 15:36 | disposition home or self-care (01) ==
LOC: ED 01-08 01:02
PROVIDERS: Emergency Provider Emergency Medicine
DX: F29 Unspecified psychosis not due to a substance or known physiological condition (principal); Z72.0 Tobacco use
CPT/HCPCS: 36415; 80048; 80307; 80320; 85025; 96372; 99283; G0480; J3486

== ENCOUNTER 2020-01-28 18:33 | Emergency (ER) | payer SELFPAY ==
[2020-01-28 18:35] VITALS: BP 143/96; PULSE 125; RESP 16; TEMP 37.3; O2SAT 95; BMI 23.6
--- NOTE | 2020-01-28 20:10 | ED.VIS.GEN ---
History of Present Illness Chief Complaint: Substance Abuse Informant: Patient Narrative: Patient acting bizarre, was seen wandering on the [place] and admitted using methamphetamine at one point. He denies that to us, but also thinks that we andrzej his blood earlier and stole it from him, which did not happen. He was seen here couple weeks ago with similar story from what nursing staff tells me. He is delusional and talking about the nurse tonight, making up stories. He is nonsensical. He does not have any signs of trauma. History is extremely limited from him, for the most part he will not talk when asked questions. He does point out a wound on his left ankle. He cannot tell us any details about it but it seems to hurt when we press on it. He is standing while he shows us this and gives us a couple of responses. Past Medical History - Allergies and Home Meds Allergies/Adverse Reactions: Allergies No Known Allergies Allergy (Verified 01/28/20 18:40) Primary Care Physician: Care Physician,No Primary [Primary Care Provider] - Past Medical History: - - Unknown Surgical History: - - Unknown Smoking Status: Current every day smoker Drugs: - - Possibly methamphetamine, otherwise unknown Review of Systems ROS: Unable to Obtain Skin: Reports: Wounds Physical Exam Vital Signs/Narrative: Vital Signs Temp Pulse Resp BP Pulse Ox 01/28/20 18:35 99.1 F 125 H 16 143/96 H 95 Inital Vital Signs reviewed: Yes General: Well nourished, Well developed, No Acute Distress Head: Normocephalic, Atraumatic Eyes: Perrl - 3 mm, EOMI ENT: Moist mucous membranes, No rhinorrhea, - - Posterior oropharynx clear Neck: Supple, Nontender, No lymphadenopathy Cardiovascular: Regular rate, Regular rhythm, No murmurs, Tachycardia Respiratory: No distress, CTA bilaterally, Chest nontender Abdomen: Soft, Nontender, Nondistended, Normal bowel sounds Back: Nontender, Normal Inspection Extremities: No edema, Tenderness - Left ankle wound Skin: Normal color, No Trauma, Rash - 1 cm ulcerated wound left medial ankle, proximal to the medial malleolus, near the top of his boot with surrounding tender cellulitis. No purulent discharge expressible from the wound which is open. Neurological: Alert, Cranial nerves II-XII grossly intact, Normal Strength, Normal Sensation, Normal Gait, Confused Psychological: - - Paucity of speech. Stares off into space a lot in response to questions. Occasionally seems delusional. Then suddenly will smile and look at me and the nurse and asked are you 2 together, like actually together? Diagnostic/Tx/Re-eval - Medical Decision Making Nurse and I tried to very gently convince the patient to undergo testing so that we could help him. Initially he was cooperative and calm and he sat down for us. However when nursing went and he was adamant that they were not going to draw his blood. Nurse told me of this, and we had instructed him to give us a urine sample and we tried to help him with this, however when I went back to the room, he eloped. ED Disposition - Plan for ED Patient: Disposition: Against Medical Advice Diagnosis: Methamphetamine abuse Referrals: Care Physician,No Primary [Primary Care Provider] -
[2020-01-28 20:39] LABS: Amphetamine Urine VISTA POSITIVE (<1000 ng/mL); Barbiturate Urine VISTA NEGATIVE (< 200 ng/mL); Benzodiazepine Urine VISTA NEGATIVE (< 200 ng/mL); Cocaine Urine VISTA NEGATIVE (< 300 ng/mL); Ecstacy Urine VISTA POSITIVE (< 500 ng/mL); Methadone Urine VISTA NEGATIVE (< 300 ng/mL); PCP Urine VISTA NEGATIVE (< 25 ng/mL); THC Urine VISTA NEGATIVE (< 50 ng/mL); Vista UDS pH Range 6
--- NOTE | 2020-01-28 20:41 | ED.RN ---
pt went to [facility]. refused catscan. on way back pt refusing to stay. 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 aware of patient not wanting to ambulate to room.
[2020-01-28 20:44] LABS: Bacteria 0 SEEN /hpf (None Seen); Mucous, Urine 0 SEEN /hpf (<or=2+); White Blood Cells 0 SEEN /hpf (0-5)
[2020-01-28 20:46] LABS: Color, Urine Yellow (Yellow); Glucose, Dipstick Normal (Normal); Ketone-Dipstick 50 mg/dl (Negative); Leukocyte Esterase-Dipstick Negative /ul (Negative); Nitrite-Dipstick Negative (Negative); Occult Blood-Urine 10 /ul (Negative); Protein-Dipstick 30 mg/dl (Negative); Specific Gravity, Urine 1.025 (1.002-1.030); Urine Bilirubin Dipstick Negative (Negative); Urine Clarity Cloudy (Clear); Urine Urobilinogen 1 mg/dl (Normal)
[2020-01-28 20:57] LABS: Squamous Epithelial Cells - UA 0-5 SEEN /hpf (0-5)
[2020-01-28 20:59] LABS: Red Blood Cells-Urine 0-5 SEEN /hpf (0-5)
[2020-01-28 21:00] LABS: Amorphous Sediment 1+ URATE
== END 2020-01-28 20:45 | disposition left against medical advice (07) ==
PROVIDERS: Emergency Provider Emergency Medicine
DX: F15.10 Other stimulant abuse, uncomplicated (principal); L97.329 Non-pressure chronic ulcer of left ankle with unspecified severity; F17.200 Nicotine dependence, unspecified, uncomplicated
CPT/HCPCS: 80307; 81001; 99285

== ENCOUNTER 2020-02-11 16:52 | Emergency (ER) | payer SELFPAY ==
[2020-02-11 16:53] VITALS: BP 132/83; PULSE 83; RESP 16; TEMP 36.3; O2SAT 99; BMI 23.6
--- NOTE | 2020-02-11 17:01 | ED.DCSUM_ITS ---
History of Present Illness Chief Complaint: Wound Informant: Patient Narrative: Patient presents for evaluation of a wound on his left leg. He states that he got bit by a spider a while ago. He states now it is tender and red. Patient is well-known to the emergency department. Is a long history of methamphetamine abuse. He often is homeless. He denies any fevers. He states he has wounds that will not heal. Past Medical History - Allergies and Home Meds Allergies/Adverse Reactions: Allergies No Known Allergies Allergy (Verified 02/11/20 16:53) Primary Care Physician: Care Physician,No Primary [Primary Care Provider] - Surgical History: - - Unknown Smoking Status: Current every day smoker Review of Systems General: Denies: Chills, Fever, Sweats Eyes: Denies: Visual changes - bilaterally, Diplopia ENT: Denies: Rhinorrhea, Sore throat Cardiovascular: Denies: Chest pain, Palpitations Respiratory: Denies: Dyspnea, Cough, Dyspnea on exertion Gastrointestinal: Denies: Abdominal pain, Nausea, Vomiting, Diarrhea, Melena, Hematochezia Genitourinary: Denies: Dysuria, Hematuria, Frequency Musculoskeletal: Denies: Back pain, Extremity Pain Skin: Reports: Rash, Wounds Neurological: Denies: Headache, Weakness, Numbness Physical Exam Vital Signs/Narrative: Vital Signs Temp Pulse Resp BP Pulse Ox 02/11/20 16:53 97.3 F L 83 16 132/83 H 99 Inital Vital Signs reviewed: Yes General: Well nourished, Well developed, Unkempt, No Acute Distress Head: Normocephalic, Atraumatic Eyes: Perrl, EOMI ENT: Moist mucous membranes, No rhinorrhea Neck: Supple, Nontender Cardiovascular: Regular rate, Regular rhythm, No murmurs Respiratory: No distress, CTA bilaterally, Chest nontender Abdomen: Soft, Nontender, Nondistended, Normal bowel sounds Back: Nontender, Normal Inspection Extremities: Nontender, No edema Skin: - - Patient has multiple wounds on his body that are excoriated consistent with methamphetamine abuse. On the left leg posterior medial upper calf there is an excoriated lesion. Surrounding this is erythema and warmth. The area of erythema is approximately 4 cm. There is no fluctuance to suggest drainable abscess. Bedside ultrasound does not demonstrate drainable abscess. Neurological: Alert, Oriented x3, Cranial nerves II-XII grossly intact, Normal Strength, Normal Sensation Psychological: Normal affect, Normal Mood Diagnostic/Tx/Re-eval - Medical Decision Making Patient was placed on Bactrim and Keflex. He is to follow-up with primary care I again stressed to him that continue to use methamphetamines is not conducive to skin healing. ED Disposition - Plan for ED Patient: Disposition: Home or Assisted Living Diagnosis: Left leg cellulitis Instructions: ED Cellulitis Prescriptions: Smz/Tmp Ds [Bactrim Ds] 1 tab PO BID #20 tab Transmission Status: Pending to [facility] Cephalexin [Keflex] 500 mg PO Q6 #40 cap Transmission Status: Pending to [facility] Referrals: Bora Benavides III, MD [STAFF PHYSICIAN] - 2 Days for wound check
== END 2020-02-11 17:21 | disposition home or self-care (01) ==
LOC: ED 17:17
PROVIDERS: Emergency Provider Emergency Medicine
DX: L03.116 Cellulitis of left lower limb (principal); F15.10 Other stimulant abuse, uncomplicated; F17.200 Nicotine dependence, unspecified, uncomplicated
CPT/HCPCS: 99282

== ENCOUNTER 2020-03-31 05:20 | Emergency (ER) | payer SELFPAY ==
[2020-03-31 05:23] VITALS: BP 143/95; PULSE 104; RESP 14; TEMP 37.2; O2SAT 98; BMI 26.4
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
[2020-03-31 05:51] LABS: Absolute Lymphocyte Count 2.97 X10^3/uL (0.83-4.51); Basophil# 0.06 X10^3/uL; Basophil% 0.6 % (0-1); Eosinophil# 0.05 X10^3/uL; Eosinophils% 0.5 % (0-5); Hemoglobin 13.4 g/dL (13.0-16.5); Lymphocyte # 2.97 X10^3/ul (4.0); Lymphocyte % 29.5 % (19-41); Mean Corp Hgb Conc 32.7 g/dL (32-36); Mean Corpuscular Hgb 28.8 pg (27.0-32.0); Mean Platelet Vol. 10.5 fl (6.2-12.0); Monocyte# 0.97 X10^3/uL; Monocyte% 9.6 % (0-10); NRBC Flagged by Analyzer 0 % (0-5); Neutrophil % 59.6 % (47-70); Platelet Count 204 K/mm3 (150-450); RBC Distribution Width SD 44.5 fl (35.1-43.9); Red Blood Count 4.66 M/mm3 (4.6-6.2); White Blood Count 10.1 K/mm3 (4.4-11.0)
[2020-03-31 06:05] LABS: Alcohol, Blood (Medical)-Serum < 3.0 mg/dL
[2020-03-31 06:06] LABS: Anion Gap 6 (5-15); BUN 16 mg/dL (7-18); BUN/Creat Ratio 16.1 RATIO (10-20); Calcium,Total 9.1 mg/dL (8.5-10.1); Chloride 110 mmol/L (98-107); Creatinine, Serum 0.99 mg/dL (0.70-1.30); EST Glomerular Filtration Rate 94 mL/min (>60); Est Glom Filt Rate - Afr Amer 113 mL/min (>60); Estimated Creatinine Clearance 94.04 ml/min; Glucose 80 mg/dL (74-106); Potassium 3.3 mmol/L (3.5-5.1); Sodium Level 140 mmol/L (136-145)
[2020-03-31 07:50] LABS: Probe Check PASS; Specimen Processing Control PASS
--- NOTE | 2020-03-31 08:56 | NURSING ---
CHART FAXED TO CRISIS
[2020-03-31 09:42] LABS: Amphetamine Urine VISTA POSITIVE (<1000 ng/mL); Barbiturate Urine VISTA NEGATIVE (< 200 ng/mL); Benzodiazepine Urine VISTA NEGATIVE (< 200 ng/mL); Cocaine Urine VISTA NEGATIVE (< 300 ng/mL); Ecstacy Urine VISTA POSITIVE (< 500 ng/mL); Methadone Urine VISTA NEGATIVE (< 300 ng/mL); PCP Urine VISTA NEGATIVE (< 25 ng/mL); THC Urine VISTA NEGATIVE (< 50 ng/mL); Vista UDS pH Range 5
--- NOTE | 2020-03-31 11:42 | CM.ED ---
SOCIAL WORK Spoke with Jadyn from Crisis. Patient is Self Pay. Jadyn to be calling in to complete assessment with patient this afternoon. Plan: Pending Crisis consult. Earl Marino, GRAVITY PROSPECTING SUPERVISOR, LAND SURVEYOR ASSISTANT
[2020-03-31 12:11] VITALS: BP 115/72; PULSE 87; RESP 16; O2SAT 96
[2020-03-31 13:00] VITALS: RESP 16
--- NOTE | 2020-03-31 13:29 | NURSING ---
LINDA, CRISIS, TALKING TO PATIENT
--- NOTE | 2020-03-31 13:58 | ED.RN ---
crisis on the phone with patient, patient very agitated and not cooperative or answering questions. aware.
--- NOTE | 2020-03-31 14:05 | ED.DEP ---
ED Disposition - Plan for ED Patient: Diagnosis: Depression, Methamphetamine abuse Instructions: Understanding Methamphetamine Abuse and Addiction Referrals: Counseling,Center [GROUP OF PHYSICIANS] - As soon as possible [facility] [STAFF PHYSICIAN] - As soon as possible
== END 2020-03-31 14:12 | disposition home or self-care (01) ==
PROVIDERS: Emergency Provider Emergency Medicine
DX: F31.9 Bipolar disorder, unspecified (principal); R45.851 Suicidal ideations; F15.10 Other stimulant abuse, uncomplicated; F17.200 Nicotine dependence, unspecified, uncomplicated
CPT/HCPCS: 80048; 80307; 80320; 85025; 87635; 94799; 99282; G0480; U0003

== ENCOUNTER 2020-05-05 03:54 | Emergency (ER) | payer SELFPAY ==
[2020-05-05 03:55] VITALS: BP 138/97; PULSE 66; RESP 18; TEMP 36.4; O2SAT 100; BMI 24.3
--- NOTE | 2020-05-05 05:22 | ED.VIS.GEN ---
History of Present Illness Chief Complaint: Upper Extremity Injury Informant: Patient Narrative: Patient stated its cold and rainy outside and came in to warm up. He denies any specific complaints otherwise. No injury. He is homeless Past Medical History - Allergies and Home Meds Allergies/Adverse Reactions: Allergies No Known Allergies Allergy (Verified 05/05/20 03:58) Primary Care Physician: Care Physician,No Primary [Primary Care Provider] - Prior records reviewed: Yes Past Medical History: - - Reviewed Surgical History: - - Unknown Smoking Status: Current every day smoker Alcohol: None Drugs: None Review of Systems General: Denies: Chills, Fever, Sweats Eyes: Denies: Visual changes - bilaterally, Diplopia ENT: Denies: Rhinorrhea, Sore throat Cardiovascular: Denies: Chest pain, Palpitations Respiratory: Denies: Dyspnea, Cough, Dyspnea on exertion Gastrointestinal: Denies: Abdominal pain, Nausea, Vomiting, Diarrhea, Melena, Hematochezia Genitourinary: Denies: Dysuria, Hematuria, Frequency Musculoskeletal: Denies: Back pain, Extremity Pain Skin: Denies: Rash, Wounds Neurological: Denies: Headache, Weakness, Numbness Physical Exam Vital Signs/Narrative: Vital Signs Temp Pulse Resp BP Pulse Ox 05/05/20 03:55 97.6 F L 66 18 138/97 H 100 General: Well nourished, Well developed, No Acute Distress Head: Normocephalic, Atraumatic Eyes: Perrl, EOMI ENT: Moist mucous membranes, No rhinorrhea Neck: Supple, Nontender Cardiovascular: Regular rate, Regular rhythm, No murmurs Respiratory: No distress, CTA bilaterally, Chest nontender Abdomen: Soft, Nontender, Nondistended, Normal bowel sounds Back: Nontender, Normal Inspection Extremities: Nontender, No edema Skin: Normal color, No rash Neurological: Alert, Oriented x3, Cranial nerves II-XII grossly intact, Normal Strength, Normal Sensation Psychological: Normal affect, Normal Mood Diagnostic/Tx/Re-eval - Medical Decision Making Patient stated he is here to warm up. There is no evidence of ray nods on his hands. They are cool to touch. It has been raining out. He will be allowed to warm up here and then discharged ED Disposition - Plan for ED Patient: Disposition: Home or Assisted Living Diagnosis: Homelessness Instructions: Blank Diagnosis Form Referrals: Nickie Roque [NON-STAFF] -
[2020-05-05 05:36] VITALS: RESP 16
== END 2020-05-05 05:37 | disposition home or self-care (01) ==
PROVIDERS: Emergency Provider Emergency Medicine
DX: Z59.0 Homelessness (principal); F17.200 Nicotine dependence, unspecified, uncomplicated
CPT/HCPCS: 99282

== ENCOUNTER 2020-05-10 14:07 | Emergency (ER) | payer SELFPAY ==
[2020-05-10 14:08] VITALS: BP 135/91; PULSE 91; RESP 16; TEMP 37; O2SAT 97; BMI 23.3
[2020-05-10 14:54] LABS: Absolute Lymphocyte Count 2.44 X10^3/uL (0.83-4.51); Absolute Neutrophil Count 5.8 X10^3/uL (2.0-7.7); Basophil# 0.06 X10^3/uL; Basophil% 0.6 % (0-1); Eosinophil# 0.08 X10^3/uL; Eosinophils% 0.9 % (0-5); Hematocrit 45.2 % (40-54); Hemoglobin 14.2 g/dL (13.0-16.5); Lymphocyte # 2.44 X10^3/ul (4.0); Lymphocyte % 26.2 % (19-41); Mean Corp Hgb Conc 31.4 g/dL (32-36); Mean Corpuscular Hgb 28.1 pg (27.0-32.0); Mean Corpuscular Volume 89.5 fL (80-94); Mean Platelet Vol. 10.5 fl (6.2-12.0); Monocyte# 0.87 X10^3/uL; Monocyte% 9.4 % (0-10); NRBC Flagged by Analyzer 0 % (0-5); Neutrophil # 5.83 X10^3/uL (2.7-7.7); Neutrophil % 62.7 % (47-70); Platelet Count 292 K/mm3 (150-450); RBC Distribution Width CV 13.5 % (11.6-14.6); RBC Distribution Width SD 44.3 fl (35.1-43.9); Red Blood Count 5.05 M/mm3 (4.6-6.2); White Blood Count 9.3 K/mm3 (4.4-11.0)
--- NOTE | 2020-05-10 15:01 | ED.VISSUMM ---
- ER Visit Summary Date of Service: 05/10/20 Chief Complaint: Hallucinations and depressed History of Present Illness: The patient is a 30 M history of psychiatric disorder. Patient is a very limited informant due to he does not answer questions at this time. He is not violent but is just not cooperating with questioning during his history. From prior visits he has a history of methamphetamine abuse and underlying psychiatric disorder. [facility] and the patient was hearing voices and there was question of if he was suicidal. Physical Examination: Young male no acute distress vital signs stable afebrile. H EENT exam unremarkable atraumatic. Pupils round reactive light. Moist mucous membranes. No smell of alcohol. Neck nontender. No lymphadenopathy. Lungs clear to auscultation bilaterally. Heart regular rhythm no murmur. Chest wall nontender. Abdomen soft nontender. Extremities moves all 4. Neurovascular intact. Nontender no edema. Back nontender. Neurologically is awake and alert. He only answers limited questions because he does not want to seem to. Interact or speak with me very much. There is no obvious signs of a toxidrome. Test Results: CBC normal. Chemistries normal. Tox screen negative except for amphetamines. Alcohol negative. COVID negative. Emergency Department Course and Treatment: ED mental evaluation and counseling center evaluation for possible placement Treatment Plan: ED exam patient is resting comfortably at 1624. He was given IM Geodon. Counseling center is tried to talk to him twice and is not very talkative benign. They think this is his baseline. We will watch him for a while longer. Current plan is to be discharged from the emergency department for outpatient follow-up. Disposition: Charge Impression: Acute psychiatric exacerbation History of methamphetamine abuse This note was generated with [employer] dictation software. It may contain incorrect words, spelling, and punctuation that were not noted in review of the chart prior to signing ED Disposition - Plan for ED Patient: Referrals: Care Physician,No Primary [Primary Care Provider] -
[2020-05-10 15:07] LABS: Anion Gap 6 (5-15); BUN 20 mg/dL (7-18); BUN/Creat Ratio 19.2 RATIO (10-20); Calcium,Total 9.6 mg/dL (8.5-10.1); Chloride 106 mmol/L (98-107); Creatinine, Serum 1.04 mg/dL (0.70-1.30); EST Glomerular Filtration Rate 88 mL/min (>60); Est Glom Filt Rate - Afr Amer 107 mL/min (>60); Estimated Creatinine Clearance 102.92 ml/min; Glucose 89 mg/dL (74-106); Potassium 3.6 mmol/L (3.5-5.1); Sodium Level 142 mmol/L (136-145)
[2020-05-10 15:10] LABS: Amphetamine Urine VISTA POSITIVE (<1000 ng/mL); Barbiturate Urine VISTA NEGATIVE (< 200 ng/mL); Benzodiazepine Urine VISTA NEGATIVE (< 200 ng/mL); Cocaine Urine VISTA NEGATIVE (< 300 ng/mL); Ecstacy Urine VISTA NEGATIVE (< 500 ng/mL); Methadone Urine VISTA NEGATIVE (< 300 ng/mL); PCP Urine VISTA NEGATIVE (< 25 ng/mL); THC Urine VISTA NEGATIVE (< 50 ng/mL); Vista UDS pH Range 6
--- NOTE | 2020-05-10 15:29 | CM.ED ---
Social Work Patient medically cleared. Patient with no active insurance[facility]. Clinical information faxed. Cisco DEVI, ROSALEE
[2020-05-10] MEDS: Ziprasidone IM 20 MG/ML VIAL IM (15:50)
[2020-05-10 16:15] VITALS: RESP 14
--- NOTE | 2020-05-10 16:34 | ED.DEP ---
ED Disposition - Plan for ED Patient: Disposition: Home or Assisted Living Instructions: ED Depression Referrals: Counseling,Center [GROUP OF PHYSICIANS] - 1 Day Additional Instructions: Follow-up with the counseling center. Return emergency room if you are feeling worse or suicidal.
--- NOTE | 2020-05-10 18:01 | CM.ED ---
Social Work Consult: Mental Health Informant: Dr. Downing Patient declining to speak with crisis staff. This clinical social work therapist met with patient in room. Introduced self and clinical social work therapist role. Patient is not agreeable to speaking with this clinical social work therapist. Patient states I am done here. Patient will not answer any questions in regards to suicidal thoughts/plans/intents. On patient triage note with nursing suicide assessment patient denies suicidal thoughts/plans/intents. Per the pink slip primary reason for patient coming to the ED was due to patient hearing voices. Patient continues to not be corporative for completion of mental health assessment. Per crisis, believe that patient is as base line. Patient has connection with mental health services through the counseling center and is to follow up with counseling services in the community. This clinical social work therapist did attempt to speak with patient multiple times. Updated Dr. Downing on above. Plan is for patient to be discharged to the community. Updated medical team. Cisco DEVI, ROSALEE
[2020-05-10 19:25] LABS: Probe Check PASS; Specimen Processing Control PASS
== END 2020-05-10 18:31 | disposition home or self-care (01) ==
PROVIDERS: Emergency Provider Emergency Medicine
DX: F32.9 Major depressive disorder, single episode, unspecified (principal); R44.0 Auditory hallucinations; F15.10 Other stimulant abuse, uncomplicated
CPT/HCPCS: 36415; 80048; 80307; 80320; 85025; 87635; 96372; 99285; C9803; G0480; J3486; U0003

== ENCOUNTER 2020-05-11 12:06 | Emergency (ER) | payer SELFPAY ==
[2020-05-10 14:08] VITALS: BMI 23.3
[2020-05-11 12:07] VITALS: BP 150/113; PULSE 100; RESP 16; TEMP 36.6; O2SAT 100; BMI 25.7
--- NOTE | 2020-05-11 12:10 | CM.ED ---
SOCIAL WORK Informant: spiritual advisorEstelle Reason for Consult: Mental Health Informed by nursing, patient was in department yesterday. Patient would not speak to Crisis. It was determined patient was at baseline and was discharged home. Patient is self-pay. Call to Raquel with Crisis to update patient is back in ER. Per Raquel, dealing with another crisis case in the community. Will evaluate patient once medically cleared. Nursing and [place] [employer] along with security talking with patient at this time. Earl Marino, FOAM RUBBER MOLDER, MIND READER
--- NOTE | 2020-05-11 12:20 | ED.RN ---
pt would not answer my questions and kept eyeing the 2 [employer] that were here. Pt agreed to talk to me about his situation if I closed the door. Pt denies being depressed or suicidal. Pt states that he just wants to leave [facility] and go to [facility] in [place]. Pt stated that he wanted out of the room. Pt was advised if he wanted out of the room than he would have to leave the facility. Pt stated ok. He was told that he was free to go. Pt asked if the squad guys would take him to [facility]. Pt was advised that they do not do this. Pt was walked from rm 4 to the doors by security Irish and the 2 [employer] officers.
--- NOTE | 2020-05-11 12:24 | ED.DCSUM_ITS ---
History of Present Illness Narrative: I went in to evaluate the patient and he had already eloped from the emergency department. I never evaluated the patient <Rigoberto Whitley - Last Filed: 05/11/20 12:24> <Neftali Dumont - Last Filed: 05/11/20 14:55> Chief Complaint: Mental Health Past Medical History Surgical History: - - Unknown Smoking Status: Current every day smoker <Rigoberto Whitley - Last Filed: 05/11/20 12:24> <Neftali Dumont - Last Filed: 05/11/20 14:55> - Allergies and Home Meds Allergies/Adverse Reactions: Allergies No Known Allergies Allergy (Verified 05/11/20 12:09) Primary Care Physician: Care Physician,No Primary [Primary Care Provider] - Physical Exam Vital Signs/Narrative: Vital Signs Temp Pulse Resp BP Pulse Ox 05/11/20 12:07 97.8 F 100 16 150/113 H 100 <Rigoberto Whitley - Last Filed: 05/11/20 12:24> Vital Signs/Narrative: Vital Signs Temp Pulse Resp BP Pulse Ox 05/11/20 12:07 97.8 F 100 16 150/113 H 100 <Neftali Dumont - Last Filed: 05/11/20 14:55> Diagnostic/Tx/Re-eval - Medical Decision Making Patient presented to the emergency department by police. Police were concerned patient had abnormal behavior. When we went to evaluate the patient he was no longer in the room. Patient had left. Patient was seen here yesterday for similar presentation and was discharged home. Patient told the police that he just wanted to go to [facility]. <Neftali Dumont - Last Filed: 05/11/20 14:55> ED Disposition <Rigoberto Whitley - Last Filed: 05/11/20 12:24> <Neftali Dumont - Last Filed: 05/11/20 14:55> - Plan for ED Patient: Disposition: LEFT WITHOUT BEING SEEN Referrals: Care Physician,No Primary [Primary Care Provider] -
== END 2020-05-11 12:29 | disposition left against medical advice (07) ==
LOC: ED 12:27
PROVIDERS: Emergency Provider Physician Assistant Medical
DX: Z53.21 Procedure and treatment not carried out due to patient leaving prior to being seen by health care provider (principal); F17.200 Nicotine dependence, unspecified, uncomplicated
CPT/HCPCS: 99283

== ENCOUNTER 2020-06-23 13:06 | Emergency (ER) ==
[2020-06-23] VITALS (10 sets, daily range): BP systolic 105–112; BP diastolic 65–74; PULSE 71–88; RESP 13–18; TEMP 37.4; O2SAT 94–100
--- NOTE | 2020-06-23 13:45 | EKG12_ITS ---
Test Reason : MEDICAL CLEARANCE Blood Pressure : / mmHG Vent. Rate : 074 BPM Atrial Rate : 074 BPM P-R Int : 170 ms QRS Dur : 084 ms QT Int : 378 ms P-R-T Axes : 073 076 078 degrees QTc Int : 419 ms Normal sinus rhythm with sinus arrhythmia Normal ECG Confirmed by SARAH BRANDON, JAMES ([id number]), purchasing expeditor LAURA ONEAL ([id number]) on 06/26/2020 8:15:11 AM Referred By: RENETTA Confirmed By:JAMES SMITH MD
--- NOTE | 2020-06-23 14:00 | ED.DCSUM_ITS ---
History of Present Illness Chief Complaint: Mental Health Informant: Senior Firmware Engineer Narrative: Per paramedics and pink slip filled out by the police please had received numerous phone calls about a male with strange behavior. Upon their arrival reportedly the patient was throwing rocks at the booking police officer stating that he wanted them to shoot him. Apparently was extremely agitated got some Haldol by EMS. At the current time the patient will wake up and speak but is choosing not to speak to me at this time. Therefore how he is doing and review of systems going to have to be limited at this point time the patient chooses to speak. Past Medical History - Allergies and Home Meds Allergies/Adverse Reactions: Allergies No Known Allergies Allergy (Verified 06/23/20 13:10) Past Medical History: - - anxiety Surgical History: - - Unknown Lives: Homeless Smoking Status: Current every day smoker Review of Systems ROS: Unable to Obtain Physical Exam Vital Signs/Narrative: Vital Signs Temp Pulse Resp BP Pulse Ox 06/23/20 13:07 99.1 F 87 18 122/66 H 99 Inital Vital Signs reviewed: Yes General: Well nourished, Well developed, No Acute Distress Head: Normocephalic, Atraumatic Eyes: Perrl, EOMI, - - Patient resists eye opening. When his eyes are open they move around and look at the person speaking ENT: Moist mucous membranes, No rhinorrhea Neck: Supple, Nontender Cardiovascular: Regular rate, Regular rhythm, No murmurs Respiratory: No distress, CTA bilaterally, Chest nontender Abdomen: Soft, Nontender, Nondistended, Normal bowel sounds Back: Nontender, Normal Inspection Extremities: Nontender, No edema Skin: Normal color, No rash Neurological: Cranial nerves II-XII grossly intact, Normal Strength, Normal Sensation, - - Patient keeps his eyes closed and resists opening. He yells when they draw blood. Psychological: - - Patient is refusing to answer any questions. He lays in bed with his arms across his lap. Diagnostic/Tx/Re-eval Laboratory Last Values WBC 9.0 K/mm3 (4.4-11.0) 06/23/20 13:39 RBC 4.70 M/mm3 (4.6-6.2) 06/23/20 13:39 Hgb 13.4 g/dL (13.0-16.5) 06/23/20 13:39 Hct 41.4 % (40-54) 06/23/20 13:39 MCV 88.1 fL (80-94) 06/23/20 13:39 MCH 28.5 pg (27.0-32.0) 06/23/20 13:39 MCHC 32.4 g/dL (32-36) 06/23/20 13:39 RDW Std Deviation 42.3 fl (35.1-43.9) 06/23/20 13:39 RDW Coeff of Vu 13.0 % (11.6-14.6) 06/23/20 13:39 Plt Count 248 K/mm3 (150-450) 06/23/20 13:39 MPV 10.4 fl (6.2-12.0) 06/23/20 13:39 Immature Gran % (Auto) 0.100 % (0.0-0.9) 06/23/20 13:39 Neut % (Auto) 62.1 % (47-70) 06/23/20 13:39 Lymph % (Auto) 29.7 % (19-41) 06/23/20 13:39 [place] % (Auto) 6.6 % (0-10) 06/23/20 13:39 Eos % (Auto) 0.9 % (0-5) 06/23/20 13:39 Baso % (Auto) 0.6 % (0-1) 06/23/20 13:39 Absolute Neuts (auto) 5.6 X10^3/uL (2.0-7.7) 06/23/20 13:39 Absolute Lymphs (auto) 2.66 X10^3/uL (0.83-4.51) 06/23/20 13:39 Nucleated RBC % 0 % (0-5) 06/23/20 13:39 Sodium 140 mmol/L (136-145) 06/23/20 13:39 Potassium 3.2 mmol/L (3.5-5.1) L 06/23/20 13:39 Chloride 106 mmol/L (98-107) 06/23/20 13:39 Carbon Dioxide 26.0 mmol/L (21.0-32.0) 06/23/20 13:39 Anion Gap 8 (5-15) 06/23/20 13:39 BUN 14 mg/dL (7-18) 06/23/20 13:39 Creatinine 0.77 mg/dL (0.70-1.30) 06/23/20 13:39 Estim Creat Clear Calc 129.31 ml/min 06/23/20 13:39 Est GFR (MDRD) Af Amer 151 mL/min (>60) 06/23/20 13:39 Est GFR (MDRD) Non-Af 125 mL/min (>60) 06/23/20 13:39 BUN/Creatinine Ratio 18.1 RATIO (-20) 06/23/20 13:39 Glucose 74 mg/dL (74-106) 06/23/20 13:39 Calcium 9.1 mg/dL (8.5-10.1) 06/23/20 13:39 Total Bilirubin 1.20 mg/dL (0.20-1.00) H 06/23/20 13:39 AST 14 U/L (15-37) L 06/23/20 13:39 ALT 18 U/L (16-61) 06/23/20 13:39 Alkaline Phosphatase 63 U/L (45-117) 06/23/20 13:39 Total Protein 7.6 g/dL (6.4-8.2) 06/23/20 13:39 Albumin 4.1 g/dL (3.2-5.0) 06/23/20 13:39 Globulin 3.5 g/dL (2.2-4.2) 06/23/20 13:39 Albumin/Globulin Ratio 1.2 RATIO (0.9-2.4) 06/23/20 13:39 Urine Opiates Screen NEGATIVE (< 300 ng/mL) 06/23/20 13:45 Urine Methadone Screen NEGATIVE (< 300 ng/mL) 06/23/20 13:45 Ur Barbiturates Screen NEGATIVE (< 200 ng/mL) 06/23/20 13:45 Ur Phencyclidine Scrn NEGATIVE (< 25 ng/mL) 06/23/20 13:45 Ur Amphetamines Screen POSITIVE (<1000 ng/mL) H 06/23/20 13:45 U Methamphetamin-MDMA POSITIVE (< 500 ng/mL) H 06/23/20 13:45 U Benzodiazepines Scrn NEGATIVE (< 200 ng/mL) 06/23/20 13:45 Urine Cocaine Screen POSITIVE (< 300 ng/mL) H 06/23/20 13:45 U Cannabinoids Screen NEGATIVE (< 50 ng/mL) 06/23/20 13:45 Ur Drug Screen Comment 06/23/20 13:45 Ethyl Alcohol 5.0 mg/dL 06/23/20 13:39 - EKG Initial EKG Interpretation: Sinus Rhythm - EKG demonstrates a normal sinus rhythm with sinus arrhythmia at a rate of 74 without concerning features of ACS or ectopy. No QT/QRS prolongation was noted. - Medical Decision Making Patient's work-up is positive for amphetamines and cocaine. Patient will rest here in the department on the monitor until which time he is conversant and then he will be assessed by crisis. The next day the patient was alert and talking with crisis. He stated that he did want the police to kill him and that he was doing amphetamines. He states he cannot contract for safety. He then hung up on crisis and refused to talk anymore. Because of his vocalized admission that he wanted the police to kill him and his inability to contract for safety and the lack of meaningful conversation to help him think he should be hospitalized. We are going to plan on admitting to [facility]. ED Disposition - Plan for ED Patient: Disposition: Psychiatric Hospital or Unit Diagnosis: Polysubstance abuse, Dania, Suicidal ideation
[2020-06-23 14:03] LABS: Amphetamine Urine VISTA POSITIVE (<1000 ng/mL); Barbiturate Urine VISTA NEGATIVE (< 200 ng/mL); Benzodiazepine Urine VISTA NEGATIVE (< 200 ng/mL); Cocaine Urine VISTA POSITIVE (< 300 ng/mL); Ecstacy Urine VISTA POSITIVE (< 500 ng/mL); Methadone Urine VISTA NEGATIVE (< 300 ng/mL); PCP Urine VISTA NEGATIVE (< 25 ng/mL); THC Urine VISTA NEGATIVE (< 50 ng/mL); Vista UDS pH Range 5
[2020-06-23 14:04] LABS: Absolute Lymphocyte Count 2.66 X10^3/uL (0.83-4.51); Absolute Neutrophil Count 5.6 X10^3/uL (2.0-7.7); Basophil# 0.05 X10^3/uL; Basophil% 0.6 % (0-1); Eosinophil# 0.08 X10^3/uL; Eosinophils% 0.9 % (0-5); Hematocrit 41.4 % (40-54); Hemoglobin 13.4 g/dL (13.0-16.5); Lymphocyte # 2.66 X10^3/ul (4.0); Lymphocyte % 29.7 % (19-41); Mean Corp Hgb Conc 32.4 g/dL (32-36); Mean Corpuscular Hgb 28.5 pg (27.0-32.0); Mean Corpuscular Volume 88.1 fL (80-94); Mean Platelet Vol. 10.4 fl (6.2-12.0); Monocyte# 0.59 X10^3/uL; Monocyte% 6.6 % (0-10); NRBC Flagged by Analyzer 0 % (0-5); Neutrophil # 5.58 X10^3/uL (2.7-7.7); Neutrophil % 62.1 % (47-70); Platelet Count 248 K/mm3 (150-450); RBC Distribution Width SD 42.3 fl (35.1-43.9)
--- NOTE | 2020-06-23 14:14 | CM.ED ---
SOCIAL WORK Discussed case with Dr. Power. Patient is self-pay. Crisis to evaluate once medically cleared. Staff updated. Earl Marino, COKE CRANE OPERATOR, LAMINATING PRESS OPERATOR
[2020-06-23 14:16] LABS: ALB/GLOB Ratio 1.2 RATIO (0.9-2.4); AST(SGOT) 14 U/L (15-37); Alanine Aminotransfer ALT/SGPT 18 U/L (16-61); Albumin, Serum 4.1 g/dL (3.2-5.0); Alkaline Phosphatase 63 U/L (45-117); Anion Gap 8 (5-15); BUN 14 mg/dL (7-18); BUN/Creat Ratio 18.1 RATIO (10-20); Calcium,Total 9.1 mg/dL (8.5-10.1); Chloride 106 mmol/L (98-107); Creatinine, Serum 0.77 mg/dL (0.70-1.30); EST Glomerular Filtration Rate 125 mL/min (>60); Est Glom Filt Rate - Afr Amer 151 mL/min (>60); Estimated Creatinine Clearance 129.31 ml/min; Globulin 3.5 g/dL (2.2-4.2); Glucose 74 mg/dL (74-106); Potassium 3.2 mmol/L (3.5-5.1); Protein, Total 7.6 g/dL (6.4-8.2); Sodium Level 140 mmol/L (136-145)
--- NOTE | 2020-06-23 14:49 | NURSING ---
CALLED COUNSELING CENTER, LEFT MESSAGE
--- NOTE | 2020-06-23 15:06 | NURSING ---
FAXED CHART TO [facility]. [phone]
--- NOTE | 2020-06-23 15:28 | CM.ED ---
SOCIAL WORK Received call from [place] with [facility]. Chart not received. All clinical information faxed to [facility] for assessment at this time. [place] to call in to complete assessment. Earl Marino, CHILD CARE, OFFICE ASSOCIATE
--- NOTE | 2020-06-23 15:35 | NURSING ---
EMELY, CRISIS, TALKING TO PATIENT ON PORTABLE PHONE
--- NOTE | 2020-06-23 15:41 | ED.RN ---
moe from crises called. pt continually hangs up and refuses to talke to crises.Moe states pt is often hit or miss and may be sent to [facility]. they will require a covid test. this rn talked with dr regalado . unable to determine if pt is strung out on drugs or suicidal at this juncture. will reevaluate. Plan to not order covid until determined that pt requires hospitalization
--- NOTE | 2020-06-23 18:30 | ED.RN ---
PT SISTER GA CALLED TO GET A UPDATE ON PT. SHE REQUESTED THAT SHE BE NOTIFIED WHERE HE IS TRANSFERRED IF POSSIBLE. SHE IS HIS MAIN CONTACT.
--- NOTE | 2020-06-23 19:29 | ED.RN ---
THIS RN SPOKE WITH PRIMARY HEALTH ORGANISATION MANAGER. PRIMARY HEALTH ORGANISATION MANAGER UNABLE TO ASSESS PT SINCE HE IS SLEEPING AND HANGS UP PHONE. WILL CALL CRISIS BACK WHEN PATIENT IS AWAKE.
[2020-06-24] VITALS (21 sets, daily range): BP systolic 95–106; BP diastolic 43–61; PULSE 71–90; RESP 12–18; TEMP 36.6; O2SAT 98–100
--- NOTE | 2020-06-24 01:41 | ED.RN ---
sister called and updated on patient condition and status sister Kamila [phone]
--- NOTE | 2020-06-24 08:27 | NURSING ---
[id number] PAGED MINERVA, FROM CRISIS. PATIENT READY TO TALK TO CRISIS
--- NOTE | 2020-06-24 08:29 | NURSING ---
MINERVA, CRISIS, CALLED BACK. HE WILL LET EMELY KNOW
--- NOTE | 2020-06-24 08:44 | NURSING ---
EMELY, CRISIS, TALKING ON PHONE TO PATIENT
--- NOTE | 2020-06-24 09:11 | ED.RN ---
[facility]OUNSELING CENTER SPOKE WITH THE PATIENT. PATIENT HUNG UP ON THE [facility]SELING CENTER AND REFUSED TO DISCUSS ISSUES. PT PLACED ON SUICIDE PRECAUTIONS
--- NOTE | 2020-06-24 13:05 | NURSING ---
EKG FAXED TO [facility]
--- NOTE | 2020-06-24 13:32 | NURSING ---
FAXED POTASSIUM GIVEN TO [facility].
[2020-06-25] VITALS (17 sets, daily range): BP systolic 103–120; BP diastolic 50–73; PULSE 77–86; RESP 14–18; TEMP 36.7–36.8; O2SAT 96–100
[2020-06-25] MEDS: LORazepam 1 MG Tablet PO ×2 (06:57→11:06)
--- NOTE | 2020-06-25 07:30 | ED.RN ---
CRISIS CALL WITH UPDATE: PT HAS BEEN ACCEPTED TO [facility], BUT UNKNOWN IF THERE WILL BE A BED AVAILABLE TODAY.
--- NOTE | 2020-06-25 10:53 | ED.RN ---
PT REQUESTING TO SPEAK WITH THE COUNSELING CENTER. WORKER WITH A PATIENT RIGHT NOW, WILL CALL BACK. DR HOUSTON INFORMED PT STARTING TO PACE AND GET MORE AGITATED. PT STATES I WANT TO GO HOME. JUST GIVE ME MY STUFF. LET ME WALK AROUND OUTSIDE UNTIL MY BED IS READY. PT INFORMED HE IS PINK SLIPPED AND HE MAY NOT LEAVE
[2020-06-25] MEDS: Ziprasidone IM 20 MG/ML VIAL IM (11:49)
--- NOTE | 2020-06-25 11:50 | ED.RN ---
pt remains restless in room. wanting to get clothes and leave. see MAR for Geodon given.
== END 2020-06-25 21:58 ==
PROVIDERS: Emergency Provider Emergency Medicine
DX: F15.10 Other stimulant abuse, uncomplicated (principal); F14.10 Cocaine abuse, uncomplicated; F30.9 Manic episode, unspecified; R45.851 Suicidal ideations; F17.200 Nicotine dependence, unspecified, uncomplicated
CPT/HCPCS: 80053; 80307; 80320; 85025; 87635; 93005; 96372; 99285; G0480; J3486; U0003

== ENCOUNTER 2020-07-12 01:17 | Emergency (ER) | payer MEDICAID, SELFPAY ==
[2020-06-23 13:07] VITALS: BMI 22.7
[2020-07-12 01:18] VITALS: BP 159/96; PULSE 99; RESP 18; TEMP 36.7; O2SAT 99; BMI 24.7
--- NOTE | 2020-07-12 01:18 | ED.VIS.GEN ---
History of Present Illness Chief Complaint: Laceration Informant: Patient Onset: Today Context: Sudden Onset Timing: Continuous Current Severity: Moderate Maximum Severity: Moderate Narrative: Patient is a 30-year-old male with history of schizophrenia presents to the emergency department with head laceration. Patient still has been homeless. Has been sleeping [place] a bridge. He states that he was startled by a noise, got up and began to run. He struck his head against the [place]-beam on the bridge. He did not lose consciousness. He did suffer a laceration. On squad arrival, he was awake and alert. He does think his tetanus is up-to-date. He denies visual change. He is otherwise been in his normal state of health. Prior similar symptoms: No Recent Illness/Hospitalization: No Past Medical History - Allergies and Home Meds Allergies/Adverse Reactions: Allergies No Known Allergies Allergy (Verified 07/12/20 01:18) Primary Care Physician: Nickie Roque [NON-STAFF] - 7 Days for suture removal Prior records reviewed: Yes Past Medical History: - - Schizo Fernea, substance abuse Surgical History: noncontributory, - - Unknown Smoking Status: Current every day smoker Review of Systems General: Denies: Chills, Fever, Sweats Eyes: Denies: Visual changes - bilaterally, Diplopia ENT: Denies: Rhinorrhea, Sore throat Cardiovascular: Denies: Chest pain, Palpitations Respiratory: Denies: Dyspnea, Cough, Dyspnea on exertion Gastrointestinal: Denies: Abdominal pain, Nausea, Vomiting, Diarrhea, Melena, Hematochezia Genitourinary: Denies: Dysuria, Hematuria, Frequency Musculoskeletal: Denies: Back pain, Extremity Pain Skin: Denies: Rash, Wounds Neurological: Denies: Headache, Weakness, Numbness Physical Exam Inital Vital Signs reviewed: Yes General: Well nourished, Well developed, No Acute Distress Head: Normocephalic, Trauma - Patient has 4 cm well approximated laceration at the midline of the forehead. There is superficial abrasion of the nose. No nasal septal hematoma. Eyes: Perrl, EOMI ENT: Moist mucous membranes, No rhinorrhea Neck: Supple, Nontender Cardiovascular: Regular rate, Regular rhythm, No murmurs Respiratory: No distress, CTA bilaterally, Chest nontender Abdomen: Soft, Nontender, Nondistended, Normal bowel sounds Back: Nontender, Normal Inspection Extremities: Nontender, No edema Skin: Normal color, No rash Neurological: Alert, Oriented x3, Cranial nerves II-XII grossly intact, Normal Strength, Normal Sensation Psychological: Normal affect, Normal Mood Diagnostic/Tx/Re-eval - Medical Decision Making Patient presents with forehead laceration. He had no loss of consciousness. GCS is 15. There is a superficial abrasion of the nose. Procedure-the wound was anesthetized with 3 cc of 1% lidocaine with epinephrine. It was cleaned with chlorhexidine. It was copiously irrigated and explored. There was no evidence of retained foreign body. The wound was closed with 6 simple 5-0 interrupted suture with good wound reapproximation. There is no significant bleeding. Bacitracin dressing was applied. The patient was counseled on local wound care and following up in 7 days for suture removal. He will be discharged. Impression 1. 4 cm forehead laceration with repair 2. Nasal abrasion ED Disposition - Plan for ED Patient: Instructions: ED Laceration Facial Sutr Tape Referrals: Nickie Roque [NON-STAFF] - 7 Days for suture removal
[2020-07-12 01:40] VITALS: PULSE 86; RESP 16; O2SAT 98
== END 2020-07-12 01:50 ==
LOC: ED 01:57
PROVIDERS: Emergency Provider Emergency Medicine
DX: S01.81XA Laceration without foreign body of other part of head, initial encounter (principal); S00.31XA Abrasion of nose, initial encounter; R40.2410 Glasgow coma scale score 13-15, unspecified time; W22.8XXA Striking against or struck by other objects, initial encounter; Y93.9 Activity, unspecified; Y92.9 Unspecified place or not applicable; F20.9 Schizophrenia, unspecified; Z59.0 Homelessness; F17.200 Nicotine dependence, unspecified, uncomplicated
CPT/HCPCS: 12013; 99285

== ENCOUNTER 2020-12-13 15:42 | Emergency (ER) | payer MEDICAID, SELFPAY ==
[2020-12-13 15:43] VITALS: BP 139/87; PULSE 105; RESP 16; TEMP 36.8; O2SAT 97; BMI 25.5
--- NOTE | 2020-12-13 16:39 | ED.RN ---
Patient called out requesting food and drink but then added that his throat was closing up. This nurse assessed the patient and noted no signs of distress then asked the patient if his throat felt like it was closing or if he was just thirsty explaining that if his throat felt like it was closing up nothing to drink could be given to him until the md saw him again. Patient became agitated and stated that he was just going to leave. Patient left the ER at 1636. No signs of distress, difficulty swallowing or difficulty breathing noted by this nurse.
--- NOTE | 2020-12-13 16:56 | CM.ED ---
Social Work Patient left prior to being able to be seen by social work. Per medical team patient denies suicidal thoughts, plans, intents. Per chart review patient did not appear to be at risk to self harm or harm to others. Social work unable to assess further due to patient leaving. Cisco DEVI, ROSALEE-Robinson
--- NOTE | 2020-12-13 18:03 | ED.VISSUMM ---
- ER Visit Summary Date of Service: 12/13/20 Chief Complaint: I want to go to [facility] History of Present Illness: The patient is a 30 M who presents requesting to go to [facility]. Patient states he has been getting progressively worse over the past week. Patient states he has been out of his psychiatric medications. Patient states he is homeless and unable to afford them. Patient denies any suicidal or homicidal ideations. Patient states he just feels depressed. Patient denies any fevers or chills. Patient denies any chest pain or shortness of breath. Patient denies any nausea or vomiting. Patient denies any visual or auditory hallucinations. Physical Examination: Vital signs are stable. Patient is afebrile. Patient is in no acute distress. Oral mucosa is pink and moist. Neck is supple. Trachea is midline. There is no JVD noted. Heart was regular rate and rhythm. Lungs are clear and equal bilaterally. Abdomen is soft. Bowel sounds are normal. There is no tenderness. There is no rebound or guarding noted. Skin is warm dry. Cranial nerves II through XII are intact. There are no focal motor or sensory deficits noted. Extremities are intact. There is no calf tenderness or edema. He does have a flat affect and a depressed mood. Patient denies any suicidal or homicidal ideations. Emergency Department Course and Treatment: Patient left after being seen by me. Patient states he no longer wants to be here. Patient left without telling anyone. Patient left without signing papers. Disposition: Elopement Impression: 1. Depression This note was generated with [employer] dictation software. It may contain incorrect words, spelling, and punctuation that were not noted in review of the chart prior to signing ED Disposition - Plan for ED Patient: Disposition: Against Medical Advice Diagnosis: Depression Referrals: Care Physician,No Primary [Primary Care Provider] -
== END 2020-12-13 16:36 | disposition left against medical advice (07) ==
LOC: ED 16:18
PROVIDERS: Emergency Provider Emergency Medicine
DX: F32.9 Major depressive disorder, single episode, unspecified (principal); J34.89 Other specified disorders of nose and nasal sinuses; Z59.0 Homelessness; Z72.0 Tobacco use
CPT/HCPCS: 99281; 99282

== ENCOUNTER 2021-01-25 17:44 | Emergency (ER) | payer MEDICAID, SELFPAY ==
[2021-01-25 17:45] VITALS: BP 134/83; PULSE 94; RESP 15; TEMP 36.3; O2SAT 97; BMI 23.6
--- NOTE | 2021-01-25 18:47 | EDS_ITS ---
HPI History of Present Illness Chief Complaint: Mental Health Narrative Narrative: Patient presents initially telling triage that he is looking for placement at [facility] because he is homeless. He tells me that he was freaking out earlier but now he feels better. This was mainly due to his homelessness problems. He is a schizophrenic/bipolar patient who is no longer on oral medications but gets a monthly injection, he has been compliant with that here at our counseling center and his last one was a couple days ago and he states it is controlling his schizophrenic symptoms well, he has had no hallucinations. He denies any suicidal or homicidal ideation or thoughts, he states honestly he was trying to just find a place to go. He has not tried any shelters yet. He denies any physical illness or symptoms/injuries. He also states that he is on disability for schizophrenia, and is considering looking for a job so at least he is indoors and has a place to be the majority of the day, as well as making some money. [facility] Medical History (Updated 01/25/21 @ 19:[address] Brooks Kat MD) Bipolar disorder Schizophrenia Home Medications NK 03/31/20 [History Last Taken Unknown] Allergy/AdvReac Type Severity Reaction Status Date / Time No Known Allergies Allergy Verified 12/13/20 15:45 Social History Smoking Status: Current some day smoker ROS ROS ED Constitutional Constitutional ED: Denies chills or fever(s) Eyes Eyes: Denies change in vision or diplopia ENT ENT ED: Denies rhinorrhea or sore throat Cardiovascular Cardiovascular: Denies chest pain or palpitations Respiratory/Chest Respiratory/Chest: Denies cough or dyspnea Gastrointestinal Gastrointestinal: Denies abdominal pain, diarrhea, nausea or vomiting Genitourinary Genitourinary ED: Denies dysuria or hematuria Musculoskeletal Musculoskeletal: Denies back pain or neck pain Integumentary Denies abscess or rash Neurologic Neurologic: Denies headache(s), paresthesias or weakness Psychiatric Psychiatric: Reports anxiety; Denies suicidal thoughts EXAM Physical Exam Const Vital Signs: 01/25/21 17:45 Temperature 97.3 F L Temperature Source Temporal Pulse Rate 94 Respiratory Rate 15 Blood Pressure 134/83 H Blood Pressure Mean 100 Pulse Ox 97 Oxygen Delivery Method Room Air Positive well nourished and well developed General Appearance ED: well developed and NAD HEENT Reports moist mucous membranes normocephalic and atraumatic Eyes PERRL and EOMs intact bilaterally Neck full ROM and supple Resp normal respiratory effort and clear to auscultation bilaterally Cardio regular rate, regular rhythm and no murmurs GI non-tender and non-distended Auscultation: normoactive bowel sounds Palpation: soft Back/Spine no CVA tenderness General Back: other FROM Extremity normal to inspection General Extremety ED: Negative for edema, pulses abnormal or tenderness General Extremity: Negative for edema or pulses abnormal Neuro oriented x3, CN's II-XII intact bilaterally and no sensory deficits noted Sensorium / Orientation: awake and alert Motor Exam: strength 5/5 throughout Psych mental status grossly normal, thought process normal, cooperative, affect normal, speech normal, activity/motor behavior normal, denies hallucinations, denies homicidal ideation and denies suicidal ideation Skin no rashes or lesions noted and no wounds MDM MDM MDM Narrative Medical decision making narrative: Discussed with social work, they stop by and talk with the patient as well, and agree the patient is not suicidal or meeting any requirements for being pink slipped to a facility at this time. We called the [facility] but they do not have any beds currently, the patient said that he talk to somebody on the phone and thinks he has a place to stay for right now and has a contact for another [facility] as well. He was discharged stable condition. Discharge Plan Triage Chief Complaint: Mental Health ED Provider: Brooks Kat Dx/Rx/DC Orders Clinical Impression: Encounter for medical screening examination, Homelessness Instructions: ED Depression Prescriptions: No Action NK RF: 0 Primary Care Provider: Care Physician,No Primary Referrals: Counseling,Center [GROUP OF PHYSICIANS] - As Needed Care Physician,No Primary [Primary Care Provider] - Disposition Disposition: Home, self care
--- NOTE | 2021-01-25 19:55 | CM.ED ---
SW Note Referral Source: RN Reason for referral: Patient is homeless. MD reports patient denied SI/HI. SW called [facility]. Spoke to Rosmery. They had no beds. Rosmery said that she did not have the phone number for [facility] which would be the nearest [facility]. SW briefly spoke to patient. He was at door getting his phone. He indicated he was ready to go. SW advised that [facility] had no beds tonight. SW said that [facility] is the nearest [facility]. Patient said he might have a place to stay tonight. Patient said that he is good to go tonight. He was not in emotional stress or displaying any agitation however, he appeared anxious to leave. Patient did not voice any threats to harm himself or others. His primary concern at triage was his homeless status. SW offered to give patient the number for [facility] and he said no I can look it up. SW encouraged patient to call [facility] early in the morning. Patient verbalized understanding. updated. Graciela FAIR
--- NOTE | 2021-01-25 21:59 | CM.ED ---
BRITTANY Note: Referral Source: ED Triage Referral Reason: MH SW went by room and patient asked about discharge. Patient joked and laughed and smiled. No distress noted. Patient was anxious to leave. BRITTANY updated MD. MD reported patient did not express any SI/HI and was future oriented. SW spoke to RN. RN also provided patient with homeless skilled nursing resources. Patient was provided with resources in regards to his homeless status. MD reports no MH issues or needs. Graciela FAIR
== END 2021-01-25 20:13 | disposition home or self-care (01) ==
PROVIDERS: Emergency Provider Emergency Medicine
DX: Z00.8 Encounter for other general examination (principal); F20.9 Schizophrenia, unspecified; F31.9 Bipolar disorder, unspecified; Z59.0 Homelessness; F17.200 Nicotine dependence, unspecified, uncomplicated
CPT/HCPCS: 99282

== ENCOUNTER 2021-01-31 16:03 | Emergency (ER) | payer MEDICAID, SELFPAY ==
[2021-01-31 16:04] VITALS: BP 120/80; PULSE 88; RESP 15; TEMP 36.2; O2SAT 98; BMI 23.6
--- NOTE | 2021-01-31 17:24 | ED.RN ---
PT DID NOT TO WAIT ANY LONGER. EXPLAINED PTS HAD TO GO BACK BY THE [facility]UITY. PT AMBULATED FROM ER THREW HIS MASK AWAY AND TURNED RIGHT DOWN TE RAMP. PT THEN TURNED LEFT AT [facility] AND CONTINUED WALKING.
== END 2021-01-31 17:15 | disposition left against medical advice (07) ==
LOC: ED 17:48
DX: Z53.21 Procedure and treatment not carried out due to patient leaving prior to being seen by health care provider (principal)

== ENCOUNTER 2021-02-02 11:45 | Emergency (ER) | payer MEDICAID, SELFPAY ==
[2021-02-02 11:46] VITALS: BP 130/79; PULSE 101; RESP 15; TEMP 36.1; O2SAT 95; BMI 24.2
--- NOTE | 2021-02-02 11:58 | EX.ED.DYSGE1 ---
HPI History of Present Illness Chief Complaint: General Illness Detail of Chief Complaint: Patient with complaint of not feeling well Informant: patient Narrative Narrative: Patient tells me that he is homeless and he has been sleeping under a bridge. Patient is upset that his family will talk to them. He is currently working on getting disability and he has a segment assembler that is helping him try to get an apartment. He denies feeling suicidal or homicidal. He does have history of schizophrenia and bipolar disorder. Patient states that he gets a monthly injection for the schizophrenia. Patient denies recent illness. Complains of some mild nausea but no abdominal pain. Patient wants to speak with one of the social workers are crisis workers. [facility] Medical History (Updated 02/02/21 @ 13:[address] Marquez Elias DO) Bipolar disorder Schizophrenia Home Medications NK 03/31/20 [History Last Taken Unknown] Allergy/AdvReac Type Severity Reaction Status Date / Time No Known Allergies Allergy Verified 12/13/20 15:45 Social History Smoking Status: Current some day smoker tobacco type: cigarettes ROS ROS ED Constitutional Constitutional ED: Reports systems reviewed and no addt'l complaints, except as documented; Denies body ache(s), change in weight or chills Eyes Eyes: Denies acute decrease in peripheral vision, change in vision, double vision or loss of vision ENT ENT ED: Reports none; Denies ear pain, lip swelling, loss taste/smell, neck pain, otalgia or sore throat Cardiovascular Cardiovascular: Reports none; Denies abdominal pain, chest pain with activity, leg edema, lightheadedness, palpitations, rapid heart rate or syncope Respiratory/Chest Respiratory/Chest: Reports none; Denies change in mental status, dry cough, dyspnea, hemoptysis, shortness of breath at rest or shortness of breath with exertion Gastrointestinal Gastrointestinal: Reports none; Denies abdominal pain, change in stool character, diarrhea, hematemesis, hematochezia, melena, rectal bleeding or vomiting Genitourinary Genitourinary ED: Reports none; Denies abdominal discomfort, anuria, dysuria, genital pain or polyuria Musculoskeletal Musculoskeletal: Reports none; Denies arthralgias, back pain, difficulty walking, extremity pain, muscle weakness or myalgias Integumentary Reports none; Denies abscess or rash Neurologic Neurologic: Reports none; Denies abnormal gait, confusion, focal weakness, frequent falls, headache(s), loss of vision, numbness, paresthesias, radicular pain, vertigo or weakness Psychiatric Psychiatric: Reports systems reviewed and no addt'l complaints, except as documented and none; Denies behavioral changes, confusion, difficulty concentrating, hallucinations, suicidal ideation, tactile hallucinations or visual hallucinations Endocrine Endocrinology: Denies none, cold intolerance, excessive sweating, fatigue or heat intolerance Hematologic/Lymphatic Hematologic/Lymphatic: Reports none; Denies anemia, easy bleeding or easy bruising Allergic/Immunologic Allergic/Immunologic ED: Denies as per HPI, none, lip swelling, mouth swelling, throat swelling, tongue swelling or hives EXAM Physical Exam Const Vital Signs: 02/02/21 11:46 02/02/21 12:31 Temperature 97.0 F L Temperature Source Temporal Pulse Rate 101 H Respiratory Rate 15 Respiratory Effort Normal Non-Labored Respiratory Pattern Normal Blood Pressure 130/79 H Blood Pressure Mean 96 Pulse Ox 95 Oxygen Delivery Method Room Air Positive well nourished and well developed General Appearance ED: well developed and NAD HEENT Reports TM's clear and moist mucous membranes normocephalic and atraumatic; Negative for trauma or tenderness Tympanic Membrane ED: Yes TM's clear Eyes PERRL and EOMs intact bilaterally General Eye ED: Negative for pale conjunctiva or scleral icterus Neck no lymphadenopathy, supple and no JVD General: Negative for tenderness Chest Wall inspection of chest normal and palpation of chest normal Chest: Negative for tenderness Resp normal respiratory effort and clear to auscultation bilaterally Effort and Inspection: Negative for respiratory distress or pain with movement Auscultation: Negative for rhonchi, wheezes or diminished lung sounds Cardio regular rate, regular rhythm, S1 normal heart sound, S2 normal heart sound and no murmurs Peripheral Pulses: pulses 2+ throughout GI normal to inspection, nondistended, normoactive bowel sounds, soft to palpation, non-tender, non-distended and no masses Back/Spine no CVA tenderness and no thoracic nor lumbar tenderness Extremity normal to inspection General Extremety ED: Negative for edema General Extremity: Negative for edema Neuro oriented x3, CN's II-XII intact bilaterally, no sensory deficits noted and gait normal Sensorium / Orientation: awake, alert, oriented to person, oriented to place and oriented to time Motor Exam: strength 5/5 throughout and strength abnormal Psych mental status grossly normal Skin no rashes or lesions noted and no wounds MDM MDM MDM Narrative Medical decision making narrative: Patient was seen by counselor in the department who attempted to find [facility] placement for patient without success. Patient then stated that he had a friend that he could stay with and wanted to leave right now. The police captain senior was going to help patient get to where he was going. Patient did not wait for discharge instructions. I did not feel patient was suicidal or homicidal and professor of social work in agreement. Patient one-point did state that he wanted to go to [facility] because he needed a break and had nowhere to stay. He understood that he did not meet criteria for hospitalization at this time. Discharge Plan Triage Chief Complaint: General Illness ED Provider: Marquez Elias Dx/Rx/DC Orders Clinical Impression: Depression, Encounter for medical screening examination, Homelessness, Psychosis Instructions: ED Depression Prescriptions: No Action NK RF: 0 Primary Care Provider: Care Physician,No Primary Referrals: Care Physician,No Primary [Primary Care Provider] - Activity Restrictions/Additional Instructions: Follow-up with the counseling center Disposition Disposition: Home, self care
--- NOTE | 2021-02-02 13:11 | CASEMGMT ---
Addendum entered by Graciela Castro 02/02/21 13:33: Addendum: Patients sister refused him to come and stay with her, refused him money and refused him transportation from the hospital. Graciela FAIR Original Note: BRITTANY Note Referral Source: medical terminologist Reason: Patient is homeless RN advised that MD would like renal social worker (BRITTANY) to see patient. RN advised patient is homeless. RN reports no SI/HI. SW met with patient in Bed #8.Said that he wants a vacation and either wants to go to [place] or [place]. Patient said that no one helps him. Patient, when this telegraphic typewriter operator came in, was eating a whole sandwich. He said that he was sleeping under the bridge and got woke up this morning with the noise under the bridge.Patient said that he wants to go to custodial as he needs a place to stay and said I stole a brownie from [employer] this morning. Patient said that the doctor wanted me to talk to a counselor but your aren't helping me. Patient said I want a schneider and an apartment . Patient said I want to be at a place where I can talk to somebody or be alone. Patient said I am tired... I am pissed.. I woke up early. Patient said that his sister has a no trespassing order against him but I didn't do anything. Patient said that he is sick and tired of being lonely. Patient said that he had not called [facility] since this telegraphic typewriter operator gave him contact information last week. SW started hitting himself and yelled so HRO was contacted for safety. Patient made very vague references to suicide, without a plan, when patient was advised that he couldn't go to [place] because he wanted a vacation. HRO contact [facility] they were full. SW called [facility] in [place] they were full. SW called [facility] in [place] and they did not answer. SW called [facility] and spoke to [facility] and they may have an opening tomorrow or Thursday. Patient said that he had no where to go. SW called [facility]line and there was no beds in [place] at [facility]. SW talked to patient about being relinked with [facility] Patient said that he has a casemanager, [place]. provided patient with phone numbers for [facility], [facility], [facility] and [facility]. Patient then called his girlfriend and she did not answer and when asked if he wanted to leave a voice mail he said no. Patient then called his sister. When talking to his sister he said that he wanted her to pick him up and go to her place for 1-2 days and he wanted a place to shower and wash up and bum a few dollars for cigarettes. She said no. Patient then stated that he could go to a friends' house and he said he needed ride. HRO then provided ride. During the conversation patient made good eye contact but displaced anger and agitated to this telegraphic typewriter operator. However, he was fairly easy to deescalate when police where present. Patient was future oriented. He talked about having his own apartment. Patient appeared to be coming to the ED for food and to try to get into someplace for a shower. Patient displays signs of malingering behavior in making vague references to suicide but no plans regarding SI and no means or intent voiced, which is consistent with his history. At the end of the interview patient said can I leave now? and he was allowed to leave without paperwork. Patient smiled. Patient was given phone numbers of homeless shelters this telegraphic typewriter operator contact and [facility]. Of note, patient was asked when his check comes ([facility]) and he said I don't know. Patient comes to the emergency department and presents symptoms and behaviors or malingering to get his needs met. He does not present with risk of self harm or harms to others. Plan: Discharged to [facility] [place]. Provided Resource. Graciela FAIR
[2021-02-02 13:17] VITALS: PULSE 100; RESP 17
== END 2021-02-02 13:19 | disposition home or self-care (01) ==
PROVIDERS: Emergency Provider Emergency Medicine
DX: F31.9 Bipolar disorder, unspecified (principal); F20.9 Schizophrenia, unspecified; Z13.30 Encounter for screening examination for mental health and behavioral disorders, unspecified; F29 Unspecified psychosis not due to a substance or known physiological condition; Z59.0 Homelessness; F17.210 Nicotine dependence, cigarettes, uncomplicated
CPT/HCPCS: 99282

== ENCOUNTER 2021-02-07 14:58 | Emergency (ER) | payer MEDICAID, SELFPAY ==
[2021-02-07 14:59] VITALS: BP 134/77; PULSE 110; RESP 16; TEMP 36.4; O2SAT 97; BMI 23.8
--- NOTE | 2021-02-07 15:05 | EX.ED.DYSGE1 ---
HPI History of Present Illness Chief Complaint: Fever Informant: patient Onset/Context/Timing Onset: - (Unknown) Quality: Unknown Location: Not applicable Current Severity: To determine (Unable to determine) Maximum Severity: Unable to determine Worsened by: Nothing Relieved by: Nothing Associated Symptoms Associated Symptoms: Funny sensation abdomen for months Narrative Narrative: Patient is a 30-year-old male who admits he is homeless. He admits to smoking. He states he drinks. He will not quantitate how much he smokes or drinks. He denies drug use. He states he is wet because he was sweating. Patient was walking in the rain. Patient has no other symptoms or complaints. Patient is very vague. Is not forthcoming. There is little eye contact. He demanded water. Prior similar symptoms: No Recent Illness/Hospitalization: No PFSH PFS Medical History Bipolar disorder Schizophrenia Home Medications NK 03/31/20 [History Last Taken Unknown] Allergy/AdvReac Type Severity Reaction Status Date / Time No Known Allergies Allergy Verified 02/07/21 14:59 Social History (Updated 02/07/21 @ 15:[address] Piero Emanuel MD) household members: none housing: homeless Smoking Status: Current some day smoker tobacco type: cigarettes alcohol intake: current alcohol intake frequency: other substance use type: does not use ROS ROS ED Constitutional Constitutional ED: Reports fever(s) and sweats; Denies chills or subjective Eyes Eyes: Denies blurry vision, change in vision or diplopia ENT ENT ED: Denies ear pain, rhinorrhea or sore throat Cardiovascular Cardiovascular: Denies chest pain or palpitations Respiratory/Chest Respiratory/Chest: Denies cough, dyspnea or dyspnea on exertion Gastrointestinal Gastrointestinal: Reports abdominal pain; Denies constipation, diarrhea, nausea or vomiting Genitourinary Genitourinary ED: Denies dysuria, hematuria or urinary frequency Musculoskeletal Musculoskeletal: Denies arthralgias, back pain, myalgias or neck pain Integumentary Denies rash Neurologic Neurologic: Denies headache(s) or weakness EXAM Physical Exam Const Vital Signs: 02/07/21 14:59 Temperature 97.6 F L Temperature Source Temporal Pulse Rate 110 H Respiratory Rate 16 Blood Pressure 134/77 H Blood Pressure Mean 96 Pulse Ox 97 Oxygen Delivery Method Room Air Positive well nourished and well developed General Appearance ED: well developed and NAD HEENT Reports TM's clear and moist mucous membranes HEENT Narrative: Uvula is midline. There is no erythema exudate of posterior pharynx. Negative for trauma or tenderness Tympanic Membrane ED: Yes TM's clear Eyes PERRL and EOMs intact bilaterally General Eye ED: Negative for pale conjunctiva or scleral icterus Neck no lymphadenopathy, supple and no JVD General: Negative for tenderness Chest Wall inspection of chest normal and palpation of chest normal Resp normal respiratory effort and clear to auscultation bilaterally Cardio regular rate, regular rhythm, S1 normal heart sound, S2 normal heart sound and no murmurs GI normal to inspection, nondistended, normoactive bowel sounds Palpation: soft Back/Spine no CVA tenderness Cervical Spine: Negative for cervical spine tenderness Thoracic Spine / Upper Back: Negative for thoracic spinal tenderness or paraspinal muscle tenderness Lumbar Spine / Lower Back: Negative for lumbar spinal tenderness Extremity normal to inspection Neuro oriented x3 and CN's II-XII intact bilaterally Sensorium / Orientation: alert Sensory Exam: sensory level loss detected Motor Exam: strength 5/5 throughout Psych Psych Narrative: Patient not forthcoming. Affect is flat. Attitude: agitated Skin no rashes or lesions noted, no wounds and skin turgor normal MDM MDM MDM Narrative Medical decision making narrative: Patient requested water. Nursing staff was instructed not to give him water since he would be discharged. Since patient's not febrile and he has no objective findings and is very vague with his symptoms plan is to discharge. I was informed the patient stormed out. Therefore I will not print home-going instructions. Since patient returned asking for his home-going instructions a packet was printed. Discharge Plan Triage Chief Complaint: Fever ED Provider: Piero Emanuel Dx/Rx/DC Orders Clinical Impression: Encounter for medical screening examination Instructions: ED Medical Screening Exam, Nonemergent Prescriptions: No Action NK RF: 0 Primary Care Provider: Care Physician,No Primary Referrals: Care Physician,No Primary [Primary Care Provider] - Disposition Disposition: Home, self care
== END 2021-02-07 15:22 | disposition home or self-care (01) ==
LOC: ED 15:19
PROVIDERS: Emergency Provider Emergency Medicine
DX: Z00.00 Encounter for general adult medical examination without abnormal findings (principal); R61 Generalized hyperhidrosis; R10.9 Unspecified abdominal pain; F20.9 Schizophrenia, unspecified; F31.9 Bipolar disorder, unspecified; Z59.0 Homelessness; F17.210 Nicotine dependence, cigarettes, uncomplicated

== ENCOUNTER 2021-02-07 21:55 | Emergency (ER) | payer MEDICAID, SELFPAY ==
[2021-02-07 14:59] VITALS: BMI 23.8
[2021-02-07 21:56] VITALS: BP 134/81; PULSE 87; RESP 16; TEMP 36.8; O2SAT 98; BMI 25.7
--- NOTE | 2021-02-07 22:19 | ED.RN ---
ED HRO WAS AWARE OF PATIENT WHEN HE ARRIVED TO ED. PT LEFT ED PRIOR TO BEING SEEN BY MD. NURSES ATTEMPTED TO REDIRECT PATIENT BACK INTO ROOM WITHOUT SUCCESS. ED HRO IS FOLLOWING PATIENT.
--- NOTE | 2021-02-07 22:30 | ED.RN ---
PT RETURNED VIA POLICE AND PLACED INTO RM 4.
--- NOTE | 2021-02-07 22:34 | EX.ED.VIS.PS ---
HPI HPI - Psych History of Present Illness Chief Complaint: Mental Health Informant: patient PFSH [facility] Medical History Bipolar disorder Schizophrenia Home Medications NK 03/31/20 [History Last Taken Unknown] Allergy/AdvReac Type Severity Reaction Status Date / Time No Known Allergies Allergy Verified 02/07/21 21:55 Social History household members: none housing: homeless Smoking Status: Current some day smoker tobacco type: cigarettes alcohol intake: current alcohol intake frequency: other substance use type: does not use EXAM Physical Exam Const Vital Signs: 02/07/21 21:56 Temperature 98.3 F Temperature Source Temporal Pulse Rate 87 Respiratory Rate 16 Blood Pressure 134/81 H Blood Pressure Mean 98 Pulse Ox 98 Oxygen Delivery Method Room Air Discharge Plan Triage Chief Complaint: Mental Health ED Provider: Brooks Kat Dx/Rx/DC Orders Prescriptions: No Action NK RF: 0 Primary Care Provider: Care Physician,No Primary
--- NOTE | 2021-02-07 22:40 | EKG12_ITS ---
Test Reason : Blood Pressure : / mmHG Vent. Rate : 089 BPM Atrial Rate : 089 BPM P-R Int : 164 ms QRS Dur : 082 ms QT Int : 330 ms P-R-T Axes : 068 046 052 degrees QTc Int : 401 ms Normal sinus rhythm Normal ECG Confirmed by SARAH BRANDON, JAMES ([id number]), editor at large LAURA ONEAL ([id number]) on 02/11/2021 10:33:16 AM Referred By: CL Confirmed By:JAMES SMITH MD
--- NOTE | 2021-02-07 22:42 | EX.ED.VIS.PS ---
HPI HPI - Psych History of Present Illness Chief Complaint: Mental Health Informant: patient Narrative Narrative: 30-year-old male presents with suicidal ideation. Brought in by PD with a pink slip with concern for stating that he wanted to harm himself. Patient is currently homeless. Has been here multiple times over the past few weeks. Patient states he is struggled with depression in the past but is currently not on medication. Feels he needs inpatient psychiatric help. Denies any drugs or alcohol. Not recently hospitalized. [facility] Medical History Bipolar disorder Schizophrenia Home Medications NK 03/31/20 [History Last Taken Unknown] Allergy/AdvReac Type Severity Reaction Status Date / Time No Known Allergies Allergy Verified 02/07/21 21:55 Social History household members: none housing: homeless Smoking Status: Current some day smoker tobacco type: cigarettes alcohol intake: current alcohol intake frequency: other substance use type: does not use ROS ROS ED Constitutional Constitutional ED: Denies chills, fever(s) or sweats Eyes Eyes: Denies blurry vision, change in vision or diplopia ENT ENT ED: Denies rhinorrhea or sore throat Cardiovascular Cardiovascular: Denies chest pain, orthopnea, palpitations or racing heartbeat Respiratory/Chest Respiratory/Chest: Denies cough, dyspnea, dyspnea on exertion, orthopnea or sputum Gastrointestinal Gastrointestinal: Denies abdominal pain, constipation, diarrhea, melena, nausea or vomiting Genitourinary Genitourinary ED: Denies dysuria, hematuria or urinary frequency Musculoskeletal Musculoskeletal: Denies arthralgias, myalgias or neck pain Integumentary Denies rash Neurologic Neurologic: Denies headache(s), paresthesias or weakness Psychiatric Psychiatric: Reports depression, suicidal ideation and suicidal thoughts; Denies anxiety Hematologic/Lymphatic Hematologic/Lymphatic: Denies easy bleeding or easy bruising Allergic/Immunologic Allergic/Immunologic ED: Denies mouth swelling or tongue swelling EXAM Physical Exam Const Vital Signs: 02/07/21 21:56 Temperature 98.3 F Temperature Source Temporal Pulse Rate 87 Respiratory Rate 16 Blood Pressure 134/81 H Blood Pressure Mean 98 Pulse Ox 98 Oxygen Delivery Method Room Air Positive well nourished, well developed and unkempt General Appearance ED: unkempt and well developed HEENT Reports TM's clear and moist mucous membranes normocephalic and atraumatic Tympanic Membrane ED: Yes TM's clear Eyes PERRL and EOMs intact bilaterally Neck no lymphadenopathy, supple and no JVD Chest Wall inspection of chest normal Resp normal respiratory effort and clear to auscultation bilaterally Cardio regular rate, S1 normal heart sound, S2 normal heart sound and no murmurs Peripheral Pulses: pulses 2+ throughout GI soft to palpation, non-tender and non-distended Back/Spine no CVA tenderness and no thoracic nor lumbar tenderness Extremity normal to inspection General Extremety ED: Negative for edema or tenderness General Extremity: Negative for edema Neuro oriented x3, CN's II-XII intact bilaterally and no sensory deficits noted Sensorium / Orientation: alert Motor Exam: strength 5/5 throughout Psych Appearance: unkempt Activity / Motor Behavior: avoids eye contact Speech: slow and delayed Mood & Affect: flat affect Attention / Concentration: attention grossly impaired Insight: poor Skin no rashes or lesions noted MDM MDM MDM Narrative Medical decision making narrative: Patient appears well nontoxic. Vital signs within normal limits. Patient with a flat affect and endorsing suicidal ideation. Lab work within normal limits. At 2315 patient is medically cleared for crisis evaluation. Lab Data Labs: Laboratory Results - last 24 hr 02/07/21 02/07/21 02/07/21 22:42 22:42 22:42 WBC 10.4 RBC 4.76 Hgb 14.0 Hct 42.9 MCV 90.1 MCH 29.4 MCHC 32.6 RDW Std Deviation 42.3 RDW Coeff of Vu 12.8 Plt Count 288 MPV 10.3 Immature Gran % (Auto) 0.800 Neut % (Auto) 55.4 Lymph % (Auto) 36.3 [place] % (Auto) 5.6 Eos % (Auto) 1.3 Baso % (Auto) 0.6 Absolute Neuts (auto) 5.8 Absolute Lymphs (auto) 3.77 Nucleated RBC % 0 Sodium 141 Potassium 3.9 Chloride 106 Carbon Dioxide 29.0 Anion Gap 6 BUN 14 Creatinine 1.00 Estim Creat Clear Calc 107.03 Est GFR (MDRD) Af Amer 111 Est GFR (MDRD) Non-Af 92 BUN/Creatinine Ratio 14.0 Glucose 90 Calcium 8.7 Urine Color Urine Clarity Urine pH Ur Specific [place] Urine Protein Urine Glucose (UA) Urine Ketones Urine Occult Blood Urine Nitrite Urine Bilirubin Urine Urobilinogen Ur Leukocyte Esterase Urine RBC Urine WBC Ur Squamous Epith Cells Calcium Oxalate Crystal Urine Bacteria Urine Mucus Urine Opiates Screen Urine Methadone Screen Ur Barbiturates Screen Ur Phencyclidine Scrn Ur Amphetamines Screen U Methamphetamin-MDMA U Benzodiazepines Scrn Urine Cocaine Screen U Cannabinoids Screen Ur Drug Screen Comment Ethyl Alcohol 7.0 02/07/21 02/07/21 22:50 22:50 WBC RBC Hgb Hct MCV MCH MCHC RDW Std Deviation RDW Coeff of Vu Plt Count MPV Immature Gran % (Auto) Neut % (Auto) Lymph % (Auto) [place] % (Auto) Eos % (Auto) Baso % (Auto) Absolute Neuts (auto) Absolute Lymphs (auto) Nucleated RBC % Sodium Potassium Chloride Carbon Dioxide Anion Gap BUN Creatinine Estim Creat Clear Calc Est GFR (MDRD) Af Amer Est GFR (MDRD) Non-Af BUN/Creatinine Ratio Glucose Calcium Urine Color Yellow Urine Clarity Clear Urine pH 5.0 Ur Specific [place] 1.025 Urine Protein 15 H Urine Glucose (UA) Normal Urine Ketones 5 H Urine Occult Blood Negative Urine Nitrite Negative Urine Bilirubin 1 H Urine Urobilinogen Normal Ur Leukocyte Esterase Negative Urine RBC 0 SEEN Urine WBC 0 SEEN Ur Squamous Epith Cells 0 SEEN Calcium Oxalate Crystal 1+ Urine Bacteria 0 SEEN Urine Mucus 1+ Urine Opiates Screen NEGATIVE Urine Methadone Screen NEGATIVE Ur Barbiturates Screen NEGATIVE Ur Phencyclidine Scrn NEGATIVE Ur Amphetamines Screen POSITIVE H U Methamphetamin-MDMA POSITIVE H U Benzodiazepines Scrn NEGATIVE Urine Cocaine Screen NEGATIVE U Cannabinoids Screen NEGATIVE Ur Drug Screen Comment Ethyl Alcohol Rhythm Strip Rhythm Strip: Sinus Rhythm Rate: 89 Ectopy: None EKG Initial EKG: Attestation: I personally reviewed and interpreted this EKG as follows: Interpretation: Sinus Rhythm Comments: Normal sinus rhythm at 89 bpm. ND interval of 164 ms. QTC of [address] ms. No evidence of ST elevation or depression at this time. Discharge Plan Triage Chief Complaint: Mental Health ED Provider: Jeremy Astorga Dx/Rx/DC Orders Prescriptions: No Action NK RF: 0 Primary Care Provider: Care Physician,No Primary
[2021-02-07 22:54] LABS: Bacteria 0 SEEN /hpf (None Seen); Red Blood Cells-Urine 0 SEEN /hpf (0-5); Squamous Epithelial Cells - UA 0 SEEN /hpf (0-5); White Blood Cells 0 SEEN /hpf (0-5)
[2021-02-07 23:11] LABS: Color, Urine Yellow (Yellow); Glucose, Dipstick Normal (Normal); Ketone-Dipstick 5 mg/dl (Negative); Leukocyte Esterase-Dipstick Negative /ul (Negative); Nitrite-Dipstick Negative (Negative); Occult Blood-Urine Negative /ul (Negative); Protein-Dipstick 15 mg/dl (Negative); Specific Gravity, Urine 1.025 (1.002-1.030); Urine Clarity Clear (Clear); Urine Urobilinogen Normal (Normal)
[2021-02-07 23:13] LABS: Absolute Lymphocyte Count 3.77 X10^3/uL (0.83-4.51); Absolute Neutrophil Count 5.8 X10^3/uL (2.0-7.7); Basophil# 0.06 X10^3/uL; Basophil% 0.6 % (0-1); Eosinophil# 0.14 X10^3/uL; Eosinophils% 1.3 % (0-5); Hematocrit 42.9 % (40-54); Lymphocyte # 3.77 X10^3/ul (0.83-4.51); Lymphocyte % 36.3 % (19-41); Mean Corp Hgb Conc 32.6 g/dL (32-36); Mean Corpuscular Hgb 29.4 pg (27.0-32.0); Mean Corpuscular Volume 90.1 fL (80-94); Mean Platelet Vol. 10.3 fl (6.2-12.0); Monocyte# 0.58 X10^3/uL; Monocyte% 5.6 % (0-10); NRBC Flagged by Analyzer 0 % (0-5); Neutrophil # 5.76 X10^3/uL (2.7-7.7); Neutrophil % 55.4 % (47-70); Platelet Count 288 K/mm3 (150-450); RBC Distribution Width CV 12.8 % (11.6-14.6); RBC Distribution Width SD 42.3 fl (35.1-43.9); Red Blood Count 4.76 M/mm3 (4.6-6.2); White Blood Count 10.4 K/mm3 (4.4-11.0)
[2021-02-07 23:14] LABS: Anion Gap 6 (5-15); BUN 14 mg/dL (7-18); Calcium,Total 8.7 mg/dL (8.5-10.1); Chloride 106 mmol/L (98-107); EST Glomerular Filtration Rate 92 mL/min (>60); Est Glom Filt Rate - Afr Amer 111 mL/min (>60); Estimated Creatinine Clearance 107.03 ml/min; Glucose 90 mg/dL (74-106); Potassium 3.9 mmol/L (3.5-5.1); Sodium Level 141 mmol/L (136-145)
[2021-02-07 23:14] LABS: Urine Bilirubin Dipstick 1 mg/dL (Negative)
[2021-02-07 23:17] LABS: Calcium Oxalate Crystals Ur 1+ /hpf (<or=2+); Mucous, Urine 1+ /hpf (<or=2+)
[2021-02-07 23:18] LABS: Amphetamine Urine VISTA POSITIVE (<1000 ng/mL); Barbiturate Urine VISTA NEGATIVE (< 200 ng/mL); Benzodiazepine Urine VISTA NEGATIVE (< 200 ng/mL); Cocaine Urine VISTA NEGATIVE (< 300 ng/mL); Ecstacy Urine VISTA POSITIVE (< 500 ng/mL); Methadone Urine VISTA NEGATIVE (< 300 ng/mL); PCP Urine VISTA NEGATIVE (< 25 ng/mL); THC Urine VISTA NEGATIVE (< 50 ng/mL); Vista UDS pH Range 5
[2021-02-08 00:58] VITALS: RESP 16
[2021-02-08 02:07] VITALS: RESP 16
[2021-02-08 03:18] VITALS: BP 120/77; PULSE 77; RESP 16; O2SAT 99
== END 2021-02-08 03:29 ==
PROVIDERS: Emergency Provider Emergency Medicine
DX: R45.851 Suicidal ideations (principal); F20.9 Schizophrenia, unspecified; F31.9 Bipolar disorder, unspecified; Z59.0 Homelessness; F17.210 Nicotine dependence, cigarettes, uncomplicated
CPT/HCPCS: 80048; 80307; 81001; 82077; 85025; 87426; 93005; 99282; 99285

== ENCOUNTER 2021-06-16 14:35 | Emergency (ER) | payer MEDICAID, SELFPAY ==
[2021-06-16 14:35] VITALS: BP 129/92; PULSE 92; RESP 18; TEMP 35.8; O2SAT 97; BMI 27.6
--- NOTE | 2021-06-16 15:31 | ED.RN ---
pt asked if he was gong to be seen , rn notified pt it would be a little bit til a bed opened up . pt went back to the wr for a little bit then just walked out door without saying anything.
== END 2021-06-16 15:20 | disposition left against medical advice (07) ==
LOC: ED 15:34
DX: Z53.21 Procedure and treatment not carried out due to patient leaving prior to being seen by health care provider (principal)

== ENCOUNTER 2021-08-14 06:45 | Emergency (ER) | payer MEDICAID, SELFPAY ==
[2021-08-14 06:46] VITALS: BP 142/98; PULSE 114; RESP 20; TEMP 36.4; O2SAT 96; BMI 28.5
--- NOTE | 2021-08-14 07:29 | EX.ED.DYSGE1 ---
HPI History of Present Illness Chief Complaint: Dizziness Narrative Narrative: Patient presents with vague somatic complaints. He states that he is disoriented. When asked what this means, sometimes he will answer. When asked orientation questions, he is oriented to person, place, and month. He states this is been ongoing for 3 or 4 hours. He states that he has been awake for 12 to 14 hours. He is homeless. He denies any chest pain or shortness of breath. No headache. He endorses more lightheadedness than vertiginous type symptoms. No paresthesias. No exacerbating or alleviating factors. Additionally, he states he has past medical history of bipolar disorder and schizophrenia. He takes Zoloft for this. At times he will endorse auditory hallucinations, but not currently. No suicidal ideation. [facility] Medical History Bipolar disorder Schizophrenia Home Medications NK 08/14/21 [History Last Taken Unknown] Allergy/AdvReac Type Severity Reaction Status Date / Time No Known Allergies Allergy Verified 08/14/21 06:49 Social History household members: none housing: homeless Smoking Status: Current some day smoker tobacco type: cigarettes alcohol intake: current alcohol intake frequency: other substance use type: does not use ROS ROS ED ROS Narrative Constitutional: No fever, no chills. HEENT: No sore throat. No neck pain. No loss of vision. No rhinorrhea. Cardiovascular: No chest pain. No palpitations. No pedal edema. Respiratory: No cough, no shortness of breath. Abdominal: No abdominal pain. No nausea. No vomiting. Genitourinary: No dysuria. No hematuria. Musculoskeletal: No myalgias. No arthralgias. Neurologic: No headaches. No dizziness. Positive lightheadedness. Disoriented Skin: No rash. No change in color. Psychiatric: No depression. No anxiety. No auditory hallucinations. No suicidal ideation. Review of Systems ROS Unobtainable: other Details: Patient interaction, and is not forthcoming at times. EXAM Physical Exam Narrative Exam Narrative: Afebrile. Vital signs noted. HEENT: Normocephalic. Atraumatic. PERRL, EOMI. Neck soft and supple. No point tenderness or step off. Cardiovascular: Regular rate and rhythm. No murmurs, rubs, or gallops appreciated. Respiratory: No tachypnea. Lungs clear to auscultation bilaterally. Gastrointestinal: Abdomen soft, nontender, with normoactive bowel sounds. No rebound or guarding. Neurological: Awake. Alert. Oriented to person, place, and month. Nonfocal, nonlateralizing. Skin: No rash. Normal color. No pallor. Musculoskeletal: No pedal edema. Full range of motion extremities. Const Vital Signs: 08/14/21 06:46 08/14/21 06:50 Temperature 97.6 F L Temperature Source Temporal Pulse Rate 114 H Respiratory Rate 20 H Respiratory Effort Normal Respiratory Pattern Normal Blood Pressure 142/98 H Blood Pressure Mean 112 Pulse Ox 96 Oxygen Delivery Method Room Air MDM MDM MDM Narrative Medical decision making narrative: I reviewed the patient's prior records. He is known to the emergency department. He is afebrile here, but mildly tachycardic. I will obtain orthostatics and basic labs. At times he is not forthcoming with some of his answers. He did allow the RN to draw blood. He has slightly elevated white count of 12.9 which I think is nonspecific. Hemoglobin is normal at 14.6. Electrolyte panel is grossly unremarkable. He was able to eat a meal. However, during his fluid bolus, he ripped out his IV. At this point in time, I do feel that his medical screening examination is negative. I feel he can be discharged safely home with follow-up. He has done this in the past where he has stormed out. I do not feel that he would need to sign out AGAINST MEDICAL ADVICE. Disposition is discharged in stable condition. Lab Data Attestation: I reviewed the patient's lab results. Labs: Laboratory Results - last 24 hr 08/14/21 08/14/21 08:10 08:10 WBC 12.9 H RBC 5.07 Hgb 14.6 Hct 43.5 MCV 85.8 MCH 28.8 MCHC 33.6 RDW Std Deviation 39.1 RDW Coeff of Vu 12.6 Plt Count 240 MPV 9.8 Immature Gran % (Auto) 0.400 Neut % (Auto) 73.5 H Lymph % (Auto) 16.3 L [place] % (Auto) 9.2 Eos % (Auto) 0.3 Baso % (Auto) 0.3 Absolute Neuts (auto) 9.5 H Absolute Lymphs (auto) 2.10 Nucleated RBC % 0 Sodium 141 Potassium 4.0 Chloride 101 Carbon Dioxide 29.0 Anion Gap 11 BUN 16 Creatinine 0.95 Estim Creat Clear Calc 108.00 Est GFR (MDRD) Af Amer 118 Est GFR (MDRD) Non-Af 97 BUN/Creatinine Ratio 16.8 Glucose 74 Calcium 9.5 Discharge Plan Triage Chief Complaint: Dizziness ED Provider: Sherman Scott Dx/Rx/DC Orders Clinical Impression: Encounter for medical screening examination, Homelessness, Lightheadedness Instructions: ED Screening Exam Medical Nonurgent, ED Near-Fainting, Uncertain Cause Prescriptions: No Action NK RF: 0 Primary Care Provider: Care Physician,No Primary Referrals: Care Physician,No Primary [Primary Care Provider] - Disposition Disposition: Home, Self Care
[2021-08-14 08:20] LABS: Absolute Neutrophil Count 9.5 X10^3/uL (2.0-7.7); Basophil# 0.04 X10^3/uL; Basophil% 0.3 % (0-1); Eosinophil# 0.04 X10^3/uL; Eosinophils% 0.3 % (0-5); Hematocrit 43.5 % (40-54); Hemoglobin 14.6 g/dL (13.0-16.5); Lymphocyte % 16.3 % (19-41); Mean Corp Hgb Conc 33.6 g/dL (32-36); Mean Corpuscular Hgb 28.8 pg (27.0-32.0); Mean Corpuscular Volume 85.8 fL (80-94); Mean Platelet Vol. 9.8 fl (6.2-12.0); Monocyte# 1.19 X10^3/uL; Monocyte% 9.2 % (0-10); NRBC Flagged by Analyzer 0 % (0-5); Neutrophil # 9.49 X10^3/uL (2.7-7.7); Neutrophil % 73.5 % (47-70); Platelet Count 240 K/mm3 (150-450); RBC Distribution Width CV 12.6 % (11.6-14.6); RBC Distribution Width SD 39.1 fl (35.1-43.9); Red Blood Count 5.07 M/mm3 (4.6-6.2); White Blood Count 12.9 K/mm3 (4.4-11.0)
[2021-08-14] MEDS: 0.9% Normal Saline 1,000 ML 1000 ML IV (08:30)
[2021-08-14 08:35] LABS: Anion Gap 11 (5-15); BUN 16 mg/dL (7-18); BUN/Creat Ratio 16.8 RATIO (10-20); Calcium,Total 9.5 mg/dL (8.5-10.1); Chloride 101 mmol/L (98-107); Creatinine, Serum 0.95 mg/dL (0.70-1.30); EST Glomerular Filtration Rate 97 mL/min (>60); Est Glom Filt Rate - Afr Amer 118 mL/min (>60); Glucose 74 mg/dL (74-106); Sodium Level 141 mmol/L (136-145)
--- NOTE | 2021-08-14 08:42 | ED.RN ---
PT PULLED OUT IV. STATES IT WAS TOO MUCH FLUID FOR ME. PT DID NOT NOTIFY ANYONE, LEFT IV DRIPPING ONTO FLOOR
--- NOTE | 2021-08-14 08:49 | ED.RN ---
PT REFUSES ORTHO VITAL SIGNS
== END 2021-08-14 08:52 | disposition home or self-care (01) ==
PROVIDERS: Emergency Provider Emergency Medicine
DX: R42 Dizziness and giddiness (principal); Z59.00 Homelessness unspecified; F20.9 Schizophrenia, unspecified; F31.9 Bipolar disorder, unspecified; Z79.899 Other long term (current) drug therapy; F17.210 Nicotine dependence, cigarettes, uncomplicated
CPT/HCPCS: 80048; 85025; 99283; J7030; A4216